=== PATIENT | female | born 1960 | race Caucasian/White ===

== ENCOUNTER → 2016-06-11 | Outpatient (CLI) | payer BC ==
[~2016-06-11] MED LIST: AMOX400T12; CEFP500T4 PO; CYCL10TA9 PO; CYCL1DRO; ESCI10TA PO; ESTR0.5T3 PO; GABA-486 PO; IBUP1TAB90 PO; NAPR220C11 PO; OXYC-197 PO; POTA99TA21 PO; PRD20T PO; PRED10TA PO; SULF1TAB35 PO; TRAM-42 PO
--- NOTE | 2016-06-12 10:24 | Diagnostic Imaging Report ---
Bilateral screening mammogram The current study was also evaluated with a Computer Aided Detection (CAD) system. Indication: Screening. No current complaints stated on the questionnaire. COMPARISON: 03/18/15 FINDINGS: Breasts are composed of heterogeneously dense parenchyma which may decrease mammographic sensitivity. Overall, the breast density is less than prior exams bilaterally. There is no mass, architectural distortion or suspicious cluster of calcification. Allowing for technique and positional differences, no suspicious change is seen. IMPRESSION: No significant change. ACR BI-RADS Category 2: Benign findings. Result letter will be mailed to the patient. Note: At least 10% of breast cancer is not imaged by mammography. Dictated by: Dictated on workstation # [id number]
== END ==
LOC: RAD 11:02
PROVIDERS: ATTEND Nurse Practitioner
DX: Z12.31 Encounter for screening mammogram for malignant neoplasm of breast (principal)
CPT/HCPCS: 77067

== ENCOUNTER 2016-07-04 05:10 | Emergency (ER) | payer BC ==
[~2016-07-04] VITALS: Ht 172.7 cm; Wt 102.1 kg
[~2016-07-04 05:10] MED LIST changes: -CYCL10TA9 PO; -OXYC-197 PO; -PRD20T PO
--- NOTE | 2016-07-04 05:25 | ED Back Pain ---
General Chief Complaint: Back Problems Stated Complaint: BACK PAIN Source of Information: Patient, EMS, RN Notes Reviewed Exam Limitations: No Limitations (TAMELA COOPER DO) History of Present Illness Time Seen by Provider: 05:25 Initial Comments Patient c/ acute onset of right sided LBP on Saturday. Has become progressively worse. Radiates into her right buttock and around the side of her thigh to the front of her lower right thigh. Pain worse sitting. Occurred while leaning over side of her car to lift a present out of her trunk. Has had similar problem in past but was on her other side. Was dx c/ a bulging disk per MRI c/ that occurrence. Seen by back specialist in [place] for that episode. Can't take the pain any longer. Hasn't been able to sleep tonight. Location: Lumbar Spine Timing/Duration: 2-3 Days Severity: Severe Pain/Injury Location: Back Radiation: Upper Legs (right) Method of Injury: Other (see above) Modifying Factors: Worse With Movement, Improves With Other (sitting) Associated Symptoms: lower back pain (TAMELA COOPER DO) Allergies and Home Medications Allergies Coded Allergies: codeine (Unverified Allergy, Mild, 06/23/08) nitrofurantoin (Unverified Allergy, Mild, 06/23/08) lidocaine (Verified Allergy, Unknown, ANAPHYLAXIS, 02/03/15) Home Medications Estradiol 0.5 Mg Tablet, 0.5 MG PO DAILY, (Reported) Constitutional: see HPI : No Musculoskeletal: see HPI, back pain (TAMELA COOPER DO) All Other Systems Reviewed Negative Unless Noted: Yes (Negative excepted noted.) (TAMELA COOPER DO) Past Vfbouxj-Bmdmzf-Jdnlov Hx Patient Social History Recent Foreign Travel: No Contact w/Someone Who Travel: No (TAMELA COOPER DO) Seasonal Allergies Seasonal Allergies: No (TAMELA COOPER DO) Surgeries HX Surgeries: Yes (OVARIAN CYST, L knee SCOPE, SEBACEOUS CYST) Surgeries: Adenoidectomy, Hysterectomy, Tonsillectomy (TAMELA COOPER DO) Respiratory Hx Respiratory Disorders: No (TAMELA COOPER DO) Cardiovascular Hx Cardiac Disorders: Yes (SL MURMUR) (TAMELA COOPER DO) Neurological Hx Neurological Disorders: No (TAMELA COOPER DO) Reproductive System Hx 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 (TAMELA COOPER DO) Genitourinary Hx Genitourinary Disorders: No (TAMELA COOPER DO) Gastrointestinal Hx Gastrointestinal Disorders: No (TAMELA COOPER DO) Musculoskeletal Hx Musculoskeletal Disorders: No Musculoskeletal Disorders: Chronic Back Pain (TAMELA COOPER DO) Endocrine Hx Endocrine Disorders: No (TAMELA COOPER DO) HEENT HX ENT Disorders: No (TAMELA COOPER DO) Cancer Hx Cancer: No (TAMELA COOPER DO) Psychosocial Hx Psychiatric Problems: No (TAMELA COOPER DO) Integumentary HX Skin/Integumentary Disorder: No (TAMELA COOPER DO) Blood Transfusions Hx Blood Disorders: No (TAMELA COOPER DO) Physical Exam Vital Signs Vital Sign - Last 12Hours 07/04/16 05:10 Temp 98.6 Pulse 91 Resp 22 B/P (MAP) 158/94 Pulse Ox 97 O2 Delivery Room Air (RICKIE COUGHLIN MD) Vital Signs Capillary Refill : (TAMELA COOPER DO) General Appearance: WD/WN, Mild Distress, Obese Cardiovascular: Regular Rate, Rhythm Respiratory: No Respiratory Distress Gastrointestinal: Non Tender, Soft Back: Decreased Range of Motion, Other (right sided lower lumbar spine paraspinal tenderness) Neurologic/Psychiatric: Alert, Oriented x3, No Motor/Sensory Deficits Skin: Warm/Dry (TAMELA COOPER DO) Progress/Results/Core Measures Results/Orders My Orders Orders - RICKIE COUGHLIN MD Ketorolac Injection (Toradol Injection) (07/04/16 06:30) Mri Lumbar Spine W/O Contrast (07/04/16 06:28) Oxycodone/Apap 5/325mg Tablet (Percocet (07/04/16 08:15) Orphenadrine Injection (Norflex Injectio (07/04/16 08:15) (RICKIE COUGHLIN MD) Medications Given in ED Current Medications Medications Dose Ordered Sig/Paula Route Start Time Stop Time Status Last Admin Dose Admin Fentanyl Citrate 100 mcg ONCE ONCE IM 07/04/16 05:45 07/04/16 05:46 DC 07/04/16 05:46 100 MCG Ketorolac Tromethamine 60 mg ONCE ONCE IM 07/04/16 06:30 07/04/16 06:31 DC 07/04/16 06:30 60 MG Orphenadrine Citrate 60 mg ONCE ONCE IM 07/04/16 08:15 07/04/16 08:16 DC 07/04/16 08:17 60 MG Oxycodone/ Acetaminophen 1 tab ONCE ONCE PO 07/04/16 08:15 07/04/16 08:16 DC 07/04/16 08:17 1 TAB (RICKIE COUGHLIN MD) Vital Signs/I&O Vital Sign - Last 12Hours 07/04/16 05:10 Temp 98.6 Pulse 91 Resp 22 B/P (MAP) 158/94 Pulse Ox 97 O2 Delivery Room Air (RICKIE COUGHLIN MD) Progress Note #1: Time: 06:30 Progress Note I assumed care of this patient from Dr. Cooper. Dr. Cooper discussed the potential for waiting in the emergency room to determine if MRI can be performed later this morning. Patient would like to do so. Patient would like to stay and wait for MRI. She is feeling somewhat better after a fentanyl injection. A Toradol injection will be given to provide her longer relief since she is staying to be worked into the MRI scheduled. Progress Note #2: Progress Note MRI viewed and reviewed with radiologist. She has multiple areas of concern including disc bulging encroaching on the nerve root, spinal stenosis, and neuroforaminal narrowing. Patient was additionally treated with Percocet and Norflex injection. She was dismissed with a desk of her images to take to her plant controls specialist. (RICKIE COUGHLIN MD) Diagnostic Imaging Diagonstic Imaging: MRI Plain Films/CT/US/NM/MRI: other (lumbar spine) Comments MRI viewed by me and report reviewed. Discussed with the radiologist. Report below: NAME: MARLON BEAUCHAMP [facility] REC#: [id number] PT STATUS: REG ER : 1960 PHYSICIAN: RICKIE COUGHLIN MD ADMIT DATE: 07/04/16/ER Draft Date of Exam:07/04/16 MRI LUMBAR SPINE W/O CONTRAST PROCEDURE: MRI lumbar spine. TECHNIQUE: Multiplanar, multisequence MRI of the lumbar spine was performed without contrast. INDICATION: Back pain There are no previous studies available for comparison. The T2 parasagittal images show straightening of the lumbar spine. This may be secondary to muscle spasm and/or positioning. The vertebral body heights are within normal limits. There is mild generalized narrowing of the disc spaces at every level and there is desiccation of the disc as well. The thecal sac is relatively slender. This is most likely developmental variant. At the L3-4 level there is a disc bulge eccentric to the left. There is also bony overgrowth of the facet joint on the left at this level and these degenerative changes do result in at least moderate narrowing of the neural foramen on the left at the L3-4 level. There does not appear to be any significant narrowing of the neural foramen on the right at this level. The disc also narrows the AP diameter of the slender thecal sac to 8.6 MM. At the L2-3 level there is a focal far lateral disc protrusion to the right. There is no evidence for central stenosis at this level but the disc does appear to encroach upon the exiting right nerve root (sagittal T2, series 2 image 14).There is no neuroforaminal narrowing on the left at L2-3. At the L4-5 level there is also narrowing of the neural foramen on the left due to a combination of degenerative disc and bony disease. There is also mild central stenosis narrowing the thecal sac to 8.8 MM. There is no evidence for spinal stenosis or nerve root encroachment at L1-2 or L5-S1. There is mottled signal throughout the vertebral bodies on the T1 series. This appearance is nonspecific but unlikely to be related to a marrow replacement process. There is no abnormal signal arising from the cord itself. There is no paraspinal mass visualized. IMPRESSION: 1. There is a far lateral focal disc protrusion to the right at L2-3. The disc material does encroach upon the exiting right nerve root at this level. 2. There is mild central stenosis at L3-4 and L4-5 and there is narrowing of the neural foramen on the left at both of these levels. 2. The remainder of the lumbar spine is unremarkable for spinal stenosis or nerve root encroachment. 3. There is no sign of an acute bony abnormality. The mottled signal within the vertebral bodies is of uncertain etiology but unlikely to be related to a marrow replacement process. Dictated on workstation # [id number] Dict: 07/04/16 0800 Trans: 07/04/16 0824 [facility] [id number] Interpreted by: NIKOS RICHARDSON MD (RICKIE COUGHLIN MD) Departure Impression Impression: Primary Impression: Bulging lumbar disc Additional Impressions: Lumbar radiculopathy Lower back pain Qualified Codes: M54.41 - Lumbago with sciatica, right side Lumbar spinal stenosis Disposition: 01 HOME, SELF-CARE Condition: Improved Departure-Patient Inst. Decision time for Depature: 08:20 (RICKIE COUGHLIN MD) Referrals: MARLON SANTIAGO MD (PCP/Family) Primary Care Physician Patient Instructions: Low Back Pain in Adults, Radiculopathy (DC) Add. Discharge Instructions: Use ibuprofen up to 600 mg every 6 hours as needed for primary pain control. Add Percocet as prescribed for pain not controlled by ibuprofen. Take ibuprofen and prednisone with food or milk to avoid stomach upset. You may wish to use a stool softener such as Colace while using narcotic pain medications to avoid constipation. Do not drive, make important decisions, or operate machinery or dangerous tools while taking narcotics or muscle relaxers. Follow-up with your plant controls specialist as soon as possible. Return to emergency room if you have other problems or concerns, especially if you have progressive weakness of the lower extremities or problems controlling your bowels or bladder. All discharge instructions reviewed with patient and/or family. Voiced understanding. Scripts Cyclobenzaprine HCl (Cyclobenzaprine HCl) 10 Mg Tablet 10 MG PO TID Y for SPASMS, #10 TAB Prov: RICKIE COUGHLIN MD 07/04/16 Oxycodone HCl/Acetaminophen (Percocet 5-325 mg Tablet) 1 Each Tablet 1-2 EACH PO Q6H Y for PAIN-BREAKTHROUGH, #20 TAB Prov: RICKIE COUGHLIN MD 07/04/16 Prednisone (Prednisone) 20 Mg Tab 20 MG PO BID, #10 TAB Prov: RICKIE COUGHLIN MD 07/04/16 TAMELA COOPER DO July 04, 2016 05:25 RICKIE COUGHLIN MD July 04, 2016 06:32
[2016-07-04] MEDS ORDERED: fentaNYL INJECTION 100 MCG/2 ML AMP IM ONE (05:45)
[2016-07-04] MEDS ORDERED: KETOROLAC 60 MG/2 ML VIAL IM ONE (06:30)
[2016-07-04] MEDS ORDERED: oxyCODONE/APAP 5/325MG (PERCOCET 5) TABLET PO ONE (08:15)
[2016-07-04] MEDS ORDERED: ORPHENADRINE 60 MG/2 ML (NORFLEX) AMP IM ONE (08:15)
--- NOTE | 2016-07-04 08:25 | Diagnostic Imaging Report ---
PROCEDURE: MRI lumbar spine. TECHNIQUE: Multiplanar, multisequence MRI of the lumbar spine was performed without contrast. INDICATION: Back pain There are no previous studies available for comparison. The T2 parasagittal images show straightening of the lumbar spine. This may be secondary to muscle spasm and/or positioning. The vertebral body heights are within normal limits. There is mild generalized narrowing of the disc spaces at every level and there is desiccation of the disc as well. The thecal sac is relatively slender. This is most likely developmental variant. At the L3-4 level there is a disc bulge eccentric to the left. There is also bony overgrowth of the facet joint on the left at this level and these degenerative changes do result in at least moderate narrowing of the neural foramen on the left at the L3-4 level. There does not appear to be any significant narrowing of the neural foramen on the right at this level. The disc also narrows the AP diameter of the slender thecal sac to 8.6 MM. At the L2-3 level there is a focal far lateral disc protrusion to the right. There is no evidence for central stenosis at this level but the disc does appear to encroach upon the exiting right nerve root (sagittal T2, series 2 image 14).There is no neuroforaminal narrowing on the left at L2-3. At the L4-5 level there is also narrowing of the neural foramen on the left due to a combination of degenerative disc and bony disease. There is also mild central stenosis narrowing the thecal sac to 8.8 MM. There is no evidence for spinal stenosis or nerve root encroachment at L1-2 or L5-S1. There is mottled signal throughout the vertebral bodies on the T1 series. This appearance is nonspecific but unlikely to be related to a marrow replacement process. There is no acute bony abnormality identified. There is no abnormal signal arising from the cord itself. There is no paraspinal mass visualized. IMPRESSION: 1. There is a far lateral focal disc protrusion to the right at L2-3. The disc material does encroach upon the exiting right nerve root at this level. 2. There is mild central stenosis at L3-4 and L4-5 and there is narrowing of the neural foramen on the left at both of these levels. 2. The remainder of the lumbar spine is unremarkable for spinal stenosis or nerve root encroachment. 3. There is no sign of an acute bony abnormality. The mottled signal within the vertebral bodies is of uncertain etiology but unlikely to be related to a marrow replacement process. 4. These results were discussed with Dr. Mayfield in the ER. Dictated by: Dictated on workstation # [id number]
[2016-07-04] MEDS ORDERED: OXYC-197 PO (08:29)
[2016-07-04] MEDS ORDERED: PRD20T PO (08:29)
[2016-07-04] MEDS ORDERED: CYCL10TA9 PO (08:29)
[2016-07-04 08:47] VITALS: BP 155/86
== END 2016-07-04 08:48 | disposition home or self-care (01) ==
LOC: EDUNIT# 05:15 → ER 05:16
DX: M51.16 Intervertebral disc disorders with radiculopathy, lumbar region (principal); M48.06 Spinal stenosis, lumbar region
CPT/HCPCS: 72148; 96372; 99283

== ENCOUNTER → 2017-08-01 | Outpatient (CLI) | payer BC ==
[~2017-08-01] MED LIST changes: +CYCL10TA9 PO; +OXYC-197 PO; +PRD20T PO
--- NOTE | 2017-08-01 12:07 | Diagnostic Imaging Report ---
INDICATION: Routine screening. Comparison is made with prior study from 06/11/16 and 03/16/2015. 2-D and 3-D bilateral screening mammography was performed with CAD. The current study was also evaluated with a Computer Aided Detection (CAD) system. Both breasts are heterogeneously dense, limiting the sensitivity of mammography. No mass or malignant appearing microcalcifications are seen. Axillae are unremarkable. IMPRESSION: BI-RADS category one No mammographic features suspicious for malignancy are identified. ACR BI-RADS Category 1: Negative. Result letter will be mailed to the patient. Note: At least 10% of breast cancer is not imaged by mammography. Dictated by: Dictated on workstation # [id number]
== END ==
LOC: RAD 07:14
PROVIDERS: ATTEND Nurse Practitioner
DX: Z12.31 Encounter for screening mammogram for malignant neoplasm of breast (principal)
CPT/HCPCS: 77067

== ENCOUNTER → 2018-01-25 | Outpatient (CLI) | payer BC ==
[~2018-01-25] MED LIST changes: -OXYC-197 PO; +OXYC1TAB87 PO
== END ==
LOC: LABNPT 17:41
PROVIDERS: ATTEND Nurse Practitioner Family
DX: L72.3 Sebaceous cyst (principal); L08.9 Local infection of the skin and subcutaneous tissue, unspecified
CPT/HCPCS: 87070; 87077; 87205

== ENCOUNTER → 2018-03-06 | Outpatient (CLI) | payer BC ==
--- NOTE | 2018-03-06 18:55 | Diagnostic Imaging Report ---
EXAMINATION: Unilateral diagnostic left mammogram with 3D tomosynthesis and computer-aided detection (CAD) system. INDICATION: Left breast lump. COMPARISON: This study was compared to the prior exams of 08/01/2017, 06/11/2016, and 03/16/2015. At this time, the patient does complain of a small palpable abnormality in the medial inferior aspect of the left breast. Reportedly, the patient has been on antibiotics for the last six weeks. It is my understanding that there is also a recent attempt to aspirate the area of concern. FINDINGS: A marker was placed over the palpable abnormality. There is no discrete mass evident in this area. Even so, ultrasound would be recommended for further study. The fibroglandular tissue in the left breast is heterogeneously dense. This does limit the sensitivity of this exam. Overall, there does not appear to have been any significant change. There is no primary or secondary sign of malignancy. IMPRESSION: The patient's palpable abnormality in the inferomedial aspect of the left breast cannot be identified. Ultrasound would be recommended for further study. ACR BI-RADS Category 0: Incomplete. (Needs additional imaging evaluation). Result letter will be mailed to the patient. Note: At least 10% of breast cancer is not imaged by mammography. Dictated by: Dictated on workstation # [id number]
--- NOTE | 2018-03-06 19:15 | Diagnostic Imaging Report ---
EXAMINATION: Ultrasound of the left breast, limited. INDICATION: Left breast lump and pain. FINDINGS: By history, the patient has a palpable mass in the 9 o'clock position of the left breast approximately 10 cm from the nipple. The diagnostic mammogram performed in conjunction with this study failed to show any sign of a mass or an acute abnormality. On this study, there is no definite mass identified. There is a small area of slightly altered echogenicity within the skin in this region. This may represent a minute sebaceous cyst. No other abnormality is identified. IMPRESSION: There may be a small sebaceous cyst in the area of the patient's palpable abnormality. No other abnormality is identified. Clinical follow-up is recommended. ACR BI-RADS Category 1: Negative. Result letter will be mailed to the patient. Note: At least 10% of breast cancer is not imaged by mammography. Dictated by: Dictated on workstation # [id number]
== END ==
LOC: RAD 13:50
PROVIDERS: ATTEND Nurse Practitioner Family
DX: N60.82 Other benign mammary dysplasias of left breast (principal); N63.20 Unspecified lump in the left breast, unspecified quadrant
CPT/HCPCS: 76642

== ENCOUNTER → 2018-09-30 | Outpatient (CLI) | payer BC ==
--- NOTE | 2018-09-30 13:07 | Diagnostic Imaging Report ---
INDICATION: Routine screening. Comparison is made with prior mammograms from 08/01/2017 and 06/11/2016. 2-D and 3-D bilateral screening mammography was performed. The current study was also evaluated with a Computer Aided Detection (CAD) system. 3-D tomosynthesis was also performed and reviewed. FINDINGS: Scattered fibroglandular densities are identified bilaterally. The parenchymal pattern is stable. No dominant mass or malignant-appearing microcalcifications are seen. Axillae are unremarkable. IMPRESSION: No mammographic features suspicious for malignancy are identified. ACR BI-RADS Category 1: Negative. Result letter will be mailed to the patient. Note: At least 10% of breast cancer is not imaged by mammography. Dictated by: Dictated on workstation # [id number]
== END ==
LOC: RAD 07:28
PROVIDERS: ATTEND Nurse Practitioner
DX: Z12.31 Encounter for screening mammogram for malignant neoplasm of breast (principal)
CPT/HCPCS: 77067

== ENCOUNTER 2019-02-24 08:47 | Outpatient (CLI) | payer BC ==
[~2019-02-24] VITALS: Ht 172 cm; Wt 102.6 kg
[2019-02-24] MEDS ORDERED: FLAX100031 PO (09:07)
[2019-02-24] MEDS ORDERED: CHOL100048 PO (09:07)
[2019-02-24] MEDS ORDERED: ESTR0.5T3 PO (09:07)
[2019-02-24] MEDS ORDERED: CARV3.122 PO (09:07)
[2019-02-24] MEDS ORDERED: MULT1CAP27 PO (09:07)
[2019-02-24 09:09] VITALS: BP 125/75
[2019-02-24 09:59] LABS: BASOPHILS % (AUTO) 0 % (0-10); EOSINOPHILS # (AUTO) 0.1 10^3/uL (0.0-0.3); EOSINOPHILS % (AUTO) 2 % (0-10); HEMATOCRIT 40 % (35-52); HEMOGLOBIN 13.9 G/DL (11.5-16.0); LYMPHOCYTES # (AUTO) 2.1 X 10^3 (1.0-4.0); LYMPHOCYTES % (AUTO) 30 % (12-44); MEAN CORPUSCULAR HEMOGLOBIN 30 PG (25-34); MEAN CORPUSCULAR HGB CONC 35 G/DL (32-36); MEAN CORPUSCULAR VOLUME 88 FL (80-99); MEAN PLATELET VOLUME 9.3 FL (7.4-10.4); MONOCYTES # (AUTO) 0.6 X 10^3 (0.0-1.0); MONOCYTES % (AUTO) 8 % (0-12); NEUTROPHILS % (AUTO) 60 % (42-75); PLATELET COUNT 239 10^3/uL (130-400); WHITE BLOOD COUNT 6.8 10^3/uL (4.3-11.0)
== END 2019-02-24 12:00 | disposition home or self-care (01) ==
LOC: PREOP 08:47
PROVIDERS: ATTEND Obstetrics & Gynecology
DX: Z01.812 Encounter for preprocedural laboratory examination (principal); N81.10 Cystocele, unspecified; N81.6 Rectocele
CPT/HCPCS: 36415; 85025; 86850; 86900; 86901; 87081

== ENCOUNTER 2019-03-02 08:52 | Day surgery (SDC) | payer BC ==
[~2019-03-02] VITALS: Ht 172 cm; Wt 102.6 kg
[2019-03-02] VITALS (14 sets, daily range): BP systolic 127–152; BP diastolic 65–83
[~2019-03-02 08:52] MED LIST changes: +CARV3.122 PO; +CHOL100048 PO; +FLAX100031 PO; +MULT1CAP27 PO
--- NOTE | 2019-03-02 09:18 | History & Physical-Surgical ---
HPO-Surgical History of Present Illness Chief Complaint: Vaginal prolapse Diagnosis/Surgical Indication: CYSTOCELE, RECTOCELE Procedure: ANTERIOR/POSTERIOR Date of Surgery: Mar 02, 2019 Weight (Pounds): 225 Weight (Ounces): 0.0 Height (Feet): 5 Height (Inches): 8.00 Allergies and Home Medications Allergies Coded Allergies: lidocaine (Verified Allergy, Severe, ANAPHYLAXIS, 02/24/19) nitrofurantoin (Unverified Allergy, Severe, TACHYCARDIA, 02/24/19) codeine (Unverified Allergy, Mild, N/V, 02/24/19) Home Medications Carvedilol 3.125 Mg Tablet, 3.125 MG PO BID, (Reported) Cholecalciferol (Vitamin D3) 1,000 Unit Capsule, 1,000 UNIT PO DAILY, (Reported) Estradiol 0.5 Mg Tablet, 0.5 MG PO DAILY, (Reported) Flaxseed Oil 1,000 Mg Capsule, 1,000 MG PO DAILY, (Reported) Multivitamin 1 Each Capsule, 1 EACH PO DAILY, (Reported) Patient Home Medication List Home Medication List Reviewed: Yes Past Lxpipct-Wggiup-Vqdkcw Hx Patient Social History 2nd Hand Smoke Exposure: No Recent Hopitalizations: No Seasonal Allergies Seasonal Allergies: Yes Surgeries Yes (OVARIAN CYST, L knee SCOPE, SEBACEOUS CYST, DISCECTOMY) Adenoidectomy, Hysterectomy, Tonsillectomy Respiratory No Cardiovascular Yes (SL MURMUR) Hypertension, Palpitations Neurological No Reproductive System Hx Reproductive Disorders: No Sexually Transmitted Disease: No HIV/AIDS: No 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 Genitourinary No Gastrointestinal No Musculoskeletal Yes (HERNIATED DISC) Chronic Back Pain Endocrine History of Endocrine Disorders: No (THYROID NODULES) HEENT History of HEENT Disorders: Yes (GLASSES) Loss of Vision: Denies Hearing Impairment: Denies Cancer No Psychosocial History of Psychiatric Problem: No Integumentary History of Skin or Integumenta: No Blood Transfusions History of Blood Disorders: No Adverse Reaction to a Blood Tr: No (N/A) Exam Vital Signs Capillary Refill : General Appearance: Alert, Oriented X3 HEENT: Atraumatic Respiratory: Clear to Auscultation Cardiovascular: Regular Rate Abdominal: Normal Bowel Sounds Extremities: Normal Pulses Skin: No Breakdown Neuro: Normal Gait Psych/Mental Status: Mental Status NL Assessment/Plan Admission Diagnosis Diagnosis: 58 yo female with vaginal prolapse, cystocele and rectocele P: Anterior and posterior colporraphy Risk have been reviewed and consent obtained all questions answered. Admission Status: Observation Reason for Inpatient Admission: s/p A/P repair RIVKA CARBAJAL DO Mar 02, 2019 09:18
[2019-03-02] MEDS ORDERED: D5 LR IV SOLUTION 1,000 ML IV SCH (09:28)
[2019-03-02] MEDS ORDERED: METOCLOPRAMIDE INJ 10 MG/2 ML (REGLAN) IV PRN (09:30)
[2019-03-02] MEDS ORDERED: HYDROmorphone 2 MG/ML VIAL (DILAUDID) IV PRN (09:30)
[2019-03-02] MEDS ORDERED: HYDROcodone/APAP 5 MG/325 MG (LORTAB) TAB PO PRN (09:30)
[2019-03-02] MEDS ORDERED: ONDANSETRON 4 MG/2 ML (SDV) Z0FRAN IVP PRN ×2 (09:30→12:15)
[2019-03-02] MEDS ORDERED: BENZOCAINE/MENTHOL (DERMOPLAST) 56 ML CAN TP PRN (09:30)
[2019-03-02] MEDS ORDERED: NS (IVPB) 100 ML ONE (09:38)
[2019-03-02] MEDS ORDERED: VASOPRESSIN INJECTION 20 UNIT/ML VIAL ONE (09:38)
[2019-03-02] MEDS ORDERED: ESTROGENS CONJ. CREAM 30 GM (PREMARIN) TUBE ONE (09:38)
[2019-03-02] MEDS ORDERED: proPOfol 200 MG/20 ML (DIPRIVAN) VIAL IV ONE (10:02)
[2019-03-02] MEDS ORDERED: LIDOCAINE PF 2% 5 ML (XYLOCAINE) VIAL ONE (10:02)
[2019-03-02] MEDS ORDERED: ROCURONIUM 10 MG/ML 5 ML SYRINGE IV ONE (10:02)
[2019-03-02] MEDS ORDERED: ONDANSETRON 4 MG/2 ML (SDV) Z0FRAN ONE (10:02)
[2019-03-02] MEDS ORDERED: MIDAZOLAM 2 MG/2 ML (VERSED) VIAL ONE (10:03)
[2019-03-02] MEDS ORDERED: fentaNYL INJECTION 100 MCG/2 ML AMP ONE (10:03)
[2019-03-02] MEDS: LACTATED RINGERS 1,000 ML IV PRN ×3 (10:07→12:32)
[2019-03-02] MEDS ORDERED: SEVOFLURANE (ULTANE) 15 ML INHAL SOLN ONE ×6 (10:11→12:01)
[2019-03-02] MEDS ORDERED: DOCU100C37 PO (10:20)
[2019-03-02] MEDS ORDERED: IBUP-844 PO (10:20)
[2019-03-02] MEDS ORDERED: ACHD5005 PO (10:20)
--- NOTE | 2019-03-02 10:21 | Discharge Inst-Women's Service ---
Discharge Inst-Women's Serv Depart Medication/Instructions New, Converted or Re-Newed RX: RX on Chart Final Diagnosis POD 1 A/P repair Problems Reviewed?: Yes Consults/Follow Up Additional Follow Up: Yes Orders/Referrals Dr. Carbajal in 6 weeks Activity Activity: Activity as Tolerated Driving Instructions: No Driving for 1 Week NO SMOKING: NO SMOKING Nothing Inside Vagina: No Douching, No [place], No Tampons Diet Discharge Diet: No Restrictions Symptoms to Report to : Bleeding Excessive, Pain Increased, Fever Over 101 Degrees F, Cramps in Feet or Legs, Questions/Concerns For Any Problems or Questions: Contact Your Physician RIVKA CARBAJAL DO Mar 02, 2019 10:21
[2019-03-02] MEDS: KETOROLAC 30 MG/ML VIAL IV SCH ×2 (11:45→18:12)
[2019-03-02] MEDS ORDERED: DEXAMETHASONE 10 MG/ML (DECADRON) 1 ML VIAL ONE (11:52)
[2019-03-02] MEDS ORDERED: NEOSTIGMINE 3 MG/3 ML VIAL ONE (11:53)
[2019-03-02] MEDS ORDERED: GLYCOPYRROLATE 0.2 MG/ML (ROBINUL) 2 ML VIAL ONE (11:53)
[2019-03-02] MEDS ORDERED: IBUPROFEN 600 MG (MOTRIN) TAB PO SCH (12:00)
[2019-03-02] MEDS ORDERED: morphine INJ 10 MG/ML 1ML (SYR OR VIAL) IVP ONE (12:15)
[2019-03-02] MEDS ORDERED: MEPERIDINE (DEMEROL) INJ 50 MG/ML IVP ONE (12:15)
[2019-03-02] MEDS ORDERED: HYDROmorphone 2 MG/ML VIAL (DILAUDID) IV ONE (12:15)
[2019-03-02] MEDS ORDERED: HYDROmorphone 2 MG/ML VIAL (DILAUDID) ONE (12:25)
--- NOTE | 2019-03-02 13:10 | NUR ---
MARLON BEAUCHAMP TRANSFERRED TO ROOM 305 VIA PT BED ACC BY NASIM IQBAL HISTOLOGIST TECHNOLOGIST AFTER AN ANTERIOR COLPORRHAPHY AND POSTERIOR COLPORRHAPHY TODAY BY DR. CARBAJAL.MARLON BEAUCHAMP introduced to surroundings, call light, bed controls, phone, TV, temperature control, lights, meal times, smoking policy, visitor policy, side rail policy, bathrooms and showers. Patient Rights given to patient in the handbook.
--- NOTE | 2019-03-02 13:20 | NUR ---
IV PLACED ON PUMP WITH NEW TUBING. SITE CLEAR. VAGINAL PACKING IN PLACE. NO BLEEDING NOTED ON TAIL OF PACK OR V-PAD. LACEY PATENT TO DD WITH SMALL AMOUNT OF URINE. RATES PAIN 2/10.
--- NOTE | 2019-03-02 14:00 | NUR ---
ANESTHESIA NOTIFIED OF PT'S LOW PULSE TO UPPER 40'S AND LOW 50"S. DR. CARBAJAL NOTIFIED AT THE SAME TIME. NO NEW ORDERS. CONTINUOUS SPO2 MONITORING AND FREQUENT VS. FAMILY AT BEDSIDE.
--- NOTE | 2019-03-02 14:30 | NUR ---
EATING A SANDWICH TRAY. S.O. AT BEDSIDE.
--- NOTE | 2019-03-02 14:31 | Anesthesia-General Post-Op ---
General Patient Condition Mental Status/LOC: Same as Preop Cardiovascular: Satisfactory Nausea/Vomiting: Absent Respiratory: Satisfactory Pain: Controlled Complications: Absent Post Op Complications Complications None Follow Up Care/Instructions Patient Instructions None needed. Anesthesia/Patient Condition Patient Condition Patient is doing well, no complaints, stable vital signs, no apparent adverse anesthesia problems. No complications reported per nursing. NIRMAL CROWDER CRNA Mar 02, 2019 14:31
--- NOTE | 2019-03-02 16:30 | NUR ---
WATCHING TV. 500CC BOLUS INITIATED OF LR R/T BORDERLINE URINE OUTPUT. RATES PAIN 1-2/10.
--- NOTE | 2019-03-02 18:15 | NUR ---
EATING DINNER. URINE OUTPUT PICKING UP.
--- NOTE | 2019-03-02 18:33 | OPERATIVE REPORT ---
DATE OF SERVICE: PREOPERATIVE DIAGNOSIS: A 58-year-old female with vaginal prolapse including cystocele and rectocele. POSTOPERATIVE DIAGNOSIS: A 58-year-old female with vaginal prolapse including cystocele and rectocele. PROCEDURE: Anterior colporrhaphy and posterior colporrhaphy. SURGEON: Rivka Carbajal DO ANESTHESIA: General endotracheal. ESTIMATED BLOOD LOSS: 50 mL. URINE OUTPUT: 200 mL clear at the end of procedure. FLUIDS: 1700 mL lactated Ringer solution. FINDINGS: Cystocele and rectocele as listed above. SPECIMEN SENT: None. INDICATIONS FOR PROCEDURE: This 58-year-old female is a patient who presented to my office with concerns of vaginal prolapse. She was given conservative options for management; however, wished to proceed with surgical management options after risk, benefits, alternatives of both options were discussed. Consent was obtained in the preoperative area after all of her questions were answered and the patient was taken to the operating room. OPERATIVE REPORT IN DETAIL: Once in the operating room, anesthesia was found to be adequate, placed in dorsal lithotomy position, prepped and draped in normal sterile fashion. A timeout was performed. A Jo catheter placed using sterile technique. A weighted speculum was inserted in the patient's vagina. I then isolated and identify all of the margins of the cystocele. I began the procedure by infiltrating the submucosa of the cystocele margins using vasopressin, a concentration of 20 units in 100 mL normal saline. Once all the margins are injected and blanching appears of the mucosa, I then make a transverse incision at the distal margin of the cystocele. I then undermined this incision using Metzenbaum scissors down the midline and then incised down the midline. I then grasped the lateral aspect of the incision, tented upward and dissected off of the underlying vesicovaginal fascia to the lateral margins of the cystocele. This was done bilaterally until the entire cystocele has been identified and vesicovaginal fascia has been dissected away. Once this was done, I then plicated the lateral margins of the vesicovaginal fascia using 0 Vicryl suture in an interrupted fashion, reducing the cystocele as I go. Once this was completely done, I then trimmed the excess vaginal mucosa and reapproximated the mucosa of the vagina using 3-0 Vicryl suture in a running locked fashion, after which there was no active bleeding noted from the cystocele repair and the repair reveals a significant amount of reduction in the previously mentioned cystocele. I then take the weighted speculum in the patient's vagina and then began by infiltrating the margins of the submucosa of the rectocele using the same vasopressin injection until the mucosa blanches similarly to the anterior repair. I then incised the shape of a triangle upside down on the perineum and vagina and excised the cutaneous tissue. I then used this incision to undermine down the midline using Metzenbaum scissors the rectocele. I then incised down the midline as well. I dissected the rectovaginal fascia and mucosa off of the rectocele bluntly until I reached the lateral margins of the rectocele, at which point I trimmed the excess mucosa and reapproximated the mucosa and the rectovaginal fascia in one layer using 3-0 Vicryl suture in a running locked fashion. Once I reached the mucocutaneous junction, I take the suture out through the subcutaneous tissue of the perineum and reapproximate the perineal body using 0 Vicryl suture in a crown stitch reapproximating and pulling together the bulbocavernosus muscles. This was done for both support and reapproximation of the rectocele. Once this was done, I reapproximated the subcutaneous tissue and then subcuticular tissue of the perineum back up to the mucocutaneous junction where I placed my knot of the suture. After which, there was no active bleeding noted from the rectocele plane as well. I then packed the vagina using Premarin soaked vaginal packing and leave the Jo catheter in place. The patient tolerated the procedure well and sent to recovery area in stable condition. Lap and sponge counts were correct at the end of the procedure. Instrument counts correct as well. Job ID: [id number] DocumentID: [id number] Dictated Date: 03/02/2019 14:02:00 Associate Programmer Analyst Date: 03/02/2019 18:32:41 Dictated By: RIVKA CARBAJAL DO
--- NOTE | 2019-03-02 18:55 | NUR ---
DR. CARBAJAL UPDATED ON URINE OUTPUT AND BOLUS GIVEN.
[2019-03-03 00:25] VITALS: BP 142/73
[2019-03-03] MEDS: KETOROLAC 30 MG/ML VIAL IV SCH ×2 (00:26→06:35)
[2019-03-03 04:25] VITALS: BP 147/77
--- NOTE | 2019-03-03 06:49 | NUR ---
Pt ambulating in halls, asymptomatic, no ss distress, tolerating well. will cont to monitor.
--- NOTE | 2019-03-03 07:45 | NUR ---
Pt up ambulating in hallways, no s/s of distress noted.
--- NOTE | 2019-03-03 08:11 | NUR ---
Dr Clancy here to see pt.
[2019-03-03 08:26] VITALS: BP 146/82
[2019-03-03] MEDS ORDERED: DOCUSATE SODIUM 100 MG (COLACE) CAP PO SCH (09:00)
--- NOTE | 2019-03-03 11:10 | NUR ---
Pt voided, 300 ml clear yellow urine noted in hat. Pt requesting to shower. Towels and washcloths supplied.
[2019-03-03] MEDS ORDERED: IBUPROFEN 600 MG (MOTRIN) TAB PO ONE (13:31)
--- NOTE | 2019-03-03 13:45 | NUR ---
Pt requesting RN check her BP. BP taken, 154/71. Pt reports being concerned as this is very high for her, especially as she has taken her cardevilol. Pt denies headache, blurry vision, etc. Dr. Clancy called and notified per pt request. believes this is due to fluid shifts with surgery, and plans to continue with discharge as pt has a history of hypertension. Pt notified of Dr. Clancy's response. No further questions or concerns at this time.
--- NOTE | 2019-03-03 13:50 | NUR ---
Discharge instructions explained to pt with copy provided to pt along with prescriptions. Pt notified of follow up appts. Pt verbalizes understanding of instructions, signs to verify. No s/s of distress at this time. Pt waiting on ride for dismissal, will call when ready.
--- NOTE | 2019-03-03 15:10 | NUR ---
Pt ambulates off unit to private vehicle with all personal belongings, accompanied by RN. No s/s of distress noted.
[2019-03-03] MEDS ORDERED: IBUPROFEN 600 MG (MOTRIN) TAB PO SCH (18:00)
== END 2019-03-03 15:10 | disposition home or self-care (01) ==
LOC: SDC 08:52 → WS 13:10 → SDC 03-03 15:10
PROVIDERS: ATTEND Obstetrics & Gynecology
DX: N81.10 Cystocele, unspecified (principal); N81.6 Rectocele; I10 Essential (primary) hypertension; J30.9 Allergic rhinitis, unspecified; Z88.8 Allergy status to other drugs, medicaments and biological substances; Z88.5 Allergy status to narcotic agent; Z88.1 Allergy status to other antibiotic agents; Z79.899 Other long term (current) drug therapy; Z90.710 Acquired absence of both cervix and uterus; Z90.89 Acquired absence of other organs
CPT/HCPCS: 86850; 86900; 86901; 94664

== ENCOUNTER 2019-05-14 14:25 | Emergency (ER) | payer BC ==
[~2019-05-14] VITALS: Ht 172.7 cm; Wt 99.8 kg
[~2019-05-14 14:25] MED LIST changes: +ACHD5005 PO; +DOCU100C37 PO; +IBUP-844 PO
[2019-05-14] MEDS ORDERED: ASPIRIN 81 MG CHEW (CHILDREN'S ASA) ONE (14:33)
[2019-05-14] MEDS ORDERED: ASPIRIN 81 MG CHEW (CHILDREN'S ASA) PO ONE (14:45)
[2019-05-14] MEDS ORDERED: NITROGLYCERIN 0.4 MG SL TABS BTL 25'S SL PRN (14:45)
[2019-05-14 14:46] LABS: BASOPHILS % (AUTO) 0 % (0-10); EOSINOPHILS # (AUTO) 0.2 10^3/uL (0.0-0.3); EOSINOPHILS % (AUTO) 2 % (0-10); HEMATOCRIT 41 % (35-52); HEMOGLOBIN 13.6 G/DL (11.5-16.0); LYMPHOCYTES # (AUTO) 2.2 X 10^3 (1.0-4.0); LYMPHOCYTES % (AUTO) 24 % (12-44); MEAN CORPUSCULAR HEMOGLOBIN 30 PG (25-34); MEAN CORPUSCULAR HGB CONC 34 G/DL (32-36); MEAN CORPUSCULAR VOLUME 89 FL (80-99); MEAN PLATELET VOLUME 9.1 FL (7.4-10.4); MONOCYTES # (AUTO) 1.1 X 10^3 (0.0-1.0); MONOCYTES % (AUTO) 12 % (0-12); NEUTROPHILS # (AUTO) 5.6 X 10^3 (1.8-7.8); NEUTROPHILS % (AUTO) 62 % (42-75); PLATELET COUNT 284 10^3/uL (130-400); RED CELL DISTRIBUTION WIDTH 13.2 % (10.0-14.5); WHITE BLOOD COUNT 9.1 10^3/uL (4.3-11.0)
[2019-05-14 15:05] LABS: ALANINE AMINOTRANSFERASE 16 U/L (0-55); ALBUMIN 4.5 GM/DL (3.2-4.5); ALKALINE PHOSPHATASE 94 U/L (40-136); BILIRUBIN,TOTAL 0.4 MG/DL (0.1-1.0); BUN/CREATININE RATIO 21; CALCIUM 9.6 MG/DL (8.5-10.1); CARBON DIOXIDE 25 MMOL/L (21-32); CHLORIDE 105 MMOL/L (98-107); CREATININE SERUM 0.95 MG/DL (0.60-1.30); GFR ESTIMATED 60; GLUCOSE 113 MG/DL (70-105); INR 0.9 (0.8-1.4); LIPASE 52 U/L (8-78); MAGNESIUM 2.1 MG/DL (1.6-2.4); POTASSIUM 4.1 MMOL/L (3.6-5.0); PROTHROMBIN TIME PATIENT 12.8 SEC (12.2-14.7); SODIUM 140 MMOL/L (135-145); TOTAL PROTEIN 7.4 GM/DL (6.4-8.2)
--- NOTE | 2019-05-14 15:19 | ED Chest Pain ---
General Chief Complaint: Chest Pain Stated Complaint: CHEST PAIN Nursing Triage Note: Pt amb to room #4 with c/o medial chest discomfort radiating to back. 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 Pt reports she has experienced three episodes of chest discomfort within approx [id number]. Pt described discomfort as burning et pressure. A&OX4. Nursing Sepsis Screen: No Definite Risk Source: patient Exam Limitations: no limitations History of Present Illness Date Seen by Provider: May 14, 2019 Time Seen by Provider: 14:38 Initial Comments Here with report of low chest and epigastric abdominal pain that radiates to the lateral aspect of the chest and upper abdomen bilaterally. Has had intermittent onset over the past several weeks. She has had diet changes and is now avoiding wheat and made diet changes for weight loss. She has lost 4 pounds. Denies nausea, vomiting, breathing problems or sweating. States that she's had increased gas both belching and flatus over the last couple of weeks as well but certainly worse this morning. She states that she never usually belches. Unsure of what exacerbated or relieving factors other than belching. She has had echocardiogram about 6 months ago. She is currently treated for hypertension with carvedilol that is working partially. Does have family history of hypertension and diabetes. There is question of stroke in her father. Timing/Duration: intermittent, gone now, 12 hours Severity/Quality: moderate, pressure Location: central, epigastric Radiation: back (flank and lower rib margins bilateral) Prior CP/Workup: echocardiography Modifying Factors: improves with rest ASA po LEARNING DESIGNER: No NTG SL LEARNING DESIGNER: No Associated Symptoms: abdominal pain, back pain; No diaphoresis, No dizziness, No edema, No fatigue, No heartburn, No nausea/vomiting, No shortness of breath, No weakness Allergies and Home Medications Allergies Coded Allergies: lidocaine (Verified Allergy, Severe, ANAPHYLAXIS, 02/24/19) nitrofurantoin (Unverified Allergy, Severe, TACHYCARDIA, 02/24/19) codeine (Unverified Allergy, Mild, N/V, 02/24/19) amoxicillin (Verified Allergy, Unknown, 03/02/19) clavulanic acid (Verified Allergy, Unknown, 03/02/19) Home Medications Carvedilol 3.125 Mg Tablet, 3.125 MG PO BID, (Reported) Cholecalciferol (Vitamin D3) 1,000 Unit Capsule, 1,000 UNIT PO DAILY, (Reported) Docusate Sodium 100 Mg Capsule, 100 MG PO BID PRN for CONSTIPATION-1ST LINE Prescribed by: RIVKA CARBAJAL on 03/02/19 1020 Estradiol 0.5 Mg Tablet, 0.5 MG PO DAILY, (Reported) Flaxseed Oil 1,000 Mg Capsule, 1,000 MG PO DAILY, (Reported) Hydrocodone Bit/Acetaminophen 1 Tab Tab, 1-2 TAB PO Q6HR PRN for PAIN-MODERATE (5-7) Prescribed by: RIVKA CARBAJAL on 03/02/19 1020 Ibuprofen 600 Mg Tablet, 600 MG PO Q6HR Prescribed by: RIVKA CARBAJAL on 03/02/19 1020 Multivitamin 1 Each Capsule, 1 EACH PO DAILY, (Reported) Patient Home Medication List Home Medication List Reviewed: Yes Review of Systems Review of Systems Constitutional: see HPI EENTM: No Symptoms Reported Respiratory: Denies Cough, Denies Wheezing Cardiovascular: Chest Pain; Denies Edema, Denies Lightheadedness, Denies Palpitations, Denies Syncope Gastrointestinal: See HPI; Denies Nausea, Denies Vomiting Genitourinary: No Symptoms Reported Musculoskeletal: see HPI; No muscle weakness, No neck pain Skin: no symptoms reported Psychiatric/Neurological: No Symptoms Reported All Other Systems Reviewed Negative Unless Noted: Yes Past Kgopbgi-Omaweh-Ibrgzn Hx Past Med/Social Hx: Reviewed Nursing Past Med/Soc Hx Patient Social History Alcohol Use: Denies Use Recreational Drug Use: No Smoking Status: Never a Smoker 2nd Hand Smoke Exposure: No Recent Foreign Travel: No Contact w/Someone Who Travel: No Recent Infectious Disease Expo: No Recent Hopitalizations: No (SURG FEB 19) Physical Abuse: No Sexual Abuse: No Seasonal Allergies Seasonal Allergies: Yes Past Medical History Surgeries: Yes (OVARIAN CYST, L knee SCOPE, SEBACEOUS CYST, DISCECTOMY) Adenoidectomy, Hysterectomy, Tonsillectomy Respiratory: No Currently Using CPAP: No Currently Using BIPAP: No Cardiac: Yes (SL MURMUR) Hypertension, Palpitations Neurological: No Reproductive Disorders: No 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: Hysterectomy Sexually Transmitted Disease: No HIV/AIDS: No Genitourinary: No Gastrointestinal: No Musculoskeletal: Yes (HERNIATED DISC) Chronic Back Pain Endocrine: No (THYROID NODULES) HEENT: Yes (GLASSES) Loss of Vision: Denies Hearing Impairment: Denies Cancer: No Psychosocial: No Integumentary: No Blood Disorders: No Adverse Reaction/Blood Tranf: No (N/A) Family Medical History Reviewed Nursing Family Hx No Pertinent Family Hx, Diabetes, Hypertension, Stroke Physical Exam Vital Signs Vital Signs - First Documented 05/14/19 14:30 Temp 36.6 Pulse 79 Resp 17 B/P (MAP) 151/84 (106) Pulse Ox 98 O2 Delivery Room Air Capillary Refill : Less Than 3 Seconds Height, Weight, BMI Height: 5'8.00" Weight: 225lbs. 0.0oz. [id number]; 33.00 BMI Method:Stated General Appearance: No Apparent Distress, WD/WN HEENT: PERRL/EOMI, Pharynx Normal Neck: Non Tender, Supple Respiratory: Lungs Clear, Normal Breath Sounds Cardiovascular: Regular Rate, Rhythm, No Murmur Gastrointestinal: Non Tender, Soft Extremity: Normal Range of Motion, Non Tender Neurologic/Psychiatric: Alert, Oriented x3 Skin: Normal Color, Warm/Dry Progress/Results/Core Measures Results/Orders Lab Results Laboratory Tests Test 05/14/19 14:37 05/14/19 16:30 Range/Units White Blood Count 9.1 4.3-11.0 10^3/uL Red Blood Count 4.55 4.35-5.85 10^6/uL Hemoglobin 13.6 11.5-16.0 G/DL Hematocrit 41 35-52 % Mean Corpuscular Volume 89 80-99 FL Mean Corpuscular Hemoglobin 30 25-34 PG Mean Corpuscular Hemoglobin Concent 34 32-36 G/DL Red Cell Distribution Width 13.2 10.0-14.5 % Platelet Count 284 130-400 10^3/uL Mean Platelet Volume 9.1 7.4-10.4 FL Neutrophils (%) (Auto) 62 42-75 % Lymphocytes (%) (Auto) 24 12-44 % Monocytes (%) (Auto) 12 0-12 % Eosinophils (%) (Auto) 2 0-10 % Basophils (%) (Auto) 0 0-10 % Neutrophils # (Auto) 5.6 1.8-7.8 X 10^3 Lymphocytes # (Auto) 2.2 1.0-4.0 X 10^3 Monocytes # (Auto) 1.1 H 0.0-1.0 X 10^3 Eosinophils # (Auto) 0.2 0.0-0.3 10^3/uL Basophils # (Auto) 0.0 0.0-0.1 10^3/uL Prothrombin Time 12.8 12.2-14.7 SEC INR Comment 0.9 0.8-1.4 Activated Partial Thromboplast Time 25 24-35 SEC D-Dimer 0.47 0.00-0.49 UG/ML Sodium Level 140 135-145 MMOL/L Potassium Level 4.1 3.6-5.0 MMOL/L Chloride Level 105 98-107 MMOL/L Carbon Dioxide Level 25 21-32 MMOL/L Anion Gap 10 5-14 MMOL/L Blood Urea Nitrogen 20 H 7-18 MG/DL Creatinine 0.95 0.60-1.30 MG/DL Estimat Glomerular Filtration Rate 60 BUN/Creatinine Ratio 21 Glucose Level 113 H 70-105 MG/DL Calcium Level 9.6 8.5-10.1 MG/DL Corrected Calcium 9.2 8.5-10.1 MG/DL Magnesium Level 2.1 1.6-2.4 MG/DL Total Bilirubin 0.4 0.1-1.0 MG/DL Aspartate Amino Transf (AST/SGOT) 18 5-34 U/L Alanine Aminotransferase (ALT/SGPT) 16 0-55 U/L Alkaline Phosphatase 94 40-136 U/L Myoglobin 43.2 10.0-92.0 NG/ML Troponin I < 0.028 < 0.028 <0.028 NG/ML Total Protein 7.4 6.4-8.2 GM/DL Albumin 4.5 3.2-4.5 GM/DL Lipase 52 8-78 U/L My Orders Orders - EDUARDO CAPPS MD Cbc With Automated Diff (05/14/19 14:37) Magnesium (05/14/19 14:37) Chest 1 View, Ap/Pa Only (05/14/19 14:37) Ekg Tracing (05/14/19 14:37) Comprehensive Metabolic Panel (05/14/19 14:37) Myoglobin Serum (05/14/19 14:37) Protime With Inr (05/14/19 14:37) Partial Thromboplastin Time (05/14/19 14:37) O2 (05/14/19 14:37) Monitor-Rhythm Ecg Trace Only (05/14/19 14:37) Lipid Panel (05/15/19 06:00) Ed Iv/Invasive Line Start (05/14/19 14:37) Lipase (05/14/19 14:37) Fibrin Degradation Products (05/14/19 14:37) Nitroglycerin 0.4 Mg Btl 25's (Nitrostat (05/14/19 14:45) Aspirin Chewable Tablet (Baby Aspirin Ch (05/14/19 14:45) Aspirin Chewable Tablet (Baby Aspirin Ch (05/14/19 14:33) Troponin I (05/14/19 14:37) Troponin I (05/14/19 16:36) Medications Given in ED Current Medications Medications Dose Ordered Sig/Paula Route Start Time Stop Time Status Last Admin Dose Admin Aspirin 324 mg ONCE ONCE PO 05/14/19 14:45 05/14/19 14:46 DC 05/14/19 14:41 324 MG Vital Signs/I&O 05/14/19 05/14/19 14:30 14:35 Temp 36.6 Pulse 79 Resp 17 B/P (MAP) 151/84 (106) Pulse Ox 98 O2 Delivery Room Air Room Air Blood Pressure Mean: 106 Progress Progress Note : Progress Note Seen and evaluated. IV, labs, EKG and chest x-ray ordered. ASA 324 mg by mouth ordered. Nitroglycerin held as she is currently chest pain-free. Monitor patient. 1630: Repeat troponin ordered. Patient chest pain-free and has no problems currently. 1712: Repeat troponin negative. I will send a copy of the chart to Dr. Martinez. I did discuss the case with her. We will have the patient initiate probiotics and Beano. Discharged home with return precautions. Patient verbalize understanding instructions and agreement with plan. Initial ECG Impression Date: May 14, 2019 Initial ECG Impression Time: 14:33 Initial ECG Rate: 76 Initial ECG Rhythm: Normal Sinus Comment Sinus rhythm with normal axis. No evidence of ST elevation AR. Left atrial abnormality. Similar to previous of 12/25/12. Interpreted by me. Diagnostic Imaging Diagonstic Imaging: Xray Plain Films/CT/US/NM/MRI: chest Comments [facility], [place] NAME: MARLON BEAUCHAMP MED REC#: [id number] PT STATUS: REG ER : 1960 PHYSICIAN: EDUARDO CAPPS MD ADMIT DATE: 05/14/19/ER Draft Date of Exam:05/14/19 CHEST 1 VIEW, AP/PA ONLY INDICATION: Chest discomfort. TIME OF EXAM: 3:18 p.m. FINDINGS: The heart size is normal. The pulmonary vascularity is unremarkable. The lungs are clear. No infiltrate, effusion or pneumothorax is detected. IMPRESSION: No acute cardiopulmonary process is detected. Dictated on workstation # [id number] Dict: 05/14/19 1524 Trans: 05/14/19 1526 [id number] Interpreted by: JAVID SANTANA MD Electronically signed by: Departure Impression Primary Impression: Chest pain Qualified Codes: R07.9 - Chest pain, unspecified Disposition: HOME, SELF-CARE Condition: Improved Departure-Patient Inst. Referrals: MARLON MARTINEZ MD (PCP/Family) Primary Care Physician NIEVES MORE MD FACP [facility] Cindy MASCORRO MD, BASHAR J MD Patient Instructions: Chest Pain (DC) Add. Discharge Instructions: All discharge instructions reviewed with patient and/or family. Voiced understanding. You should follow-up with your DrMary as scheduled. You may follow-up with your echo technician as well or one of the ones listed. You should have follow-up for possible stress test if indicated. You may initiate [id number] probiotics or Beano as suggested by Dr. Martinez. Return for worse pain, fever, vomiting, weakness, breathing problems or other concerns as needed. Copy Copies To 1: MARLON MARTINEZ MD, TIMOTHY D MD May 14, 2019 15:19
--- NOTE | 2019-05-14 15:27 | Diagnostic Imaging Report ---
INDICATION: Chest discomfort. TIME OF EXAM: 3:18 p.m. FINDINGS: The heart size is normal. The pulmonary vascularity is unremarkable. The lungs are clear. No infiltrate, effusion or pneumothorax is detected. IMPRESSION: No acute cardiopulmonary process is detected. Dictated by: Dictated on workstation # [id number]
[2019-05-14 17:29] VITALS: BP 155/71
--- OUTSIDE RECORDS SUMMARY | 2019-05-16 14:17 | XMS REPORT | Continuity of Care Document ---
Author Organization Unknown Address Unknown Phone Unavailable Allergies Active Description Code Type Severity Reaction Onset Reported/Identified Relationship to Patient Clinical Status Yes codeine [id number] Drug Allergy Mild N/A 06/23/[id number] de souza Allergy Mild N/A 06/23/2008 Yes lidocaine [id number] Drug Allergy Unknown ANAPHYLAXIS 02/03/2015 Yes lidocaine [id number] Drug Allergy Severe ANAPHYLAXIS 02/24/[id number] de souza Allergy Severe TACHYCARDIA 02/24/2019 Yes codeine [id number] Drug Allergy Mild N/V 02/24/2019 Yes amoxicillin [id number] Drug Aller gy Unknown N/A 03/02/2019 Yes clavulanic acid [id number] D rug Allergy Unknown N/A 03/02/2019 Medications There is no data. Problems Date Dx Coded Attending Type Code Diagnosis Diagnosed By 12/28/2005 Ot 724.2 12/28/2005 Ot V57.1 02/22/2014 MARLON SANTIAGO MD Ot 620.2 02/22/2014 MARLON SANTIAGO MD Ot 753.10 02/27/2014 THIAGO CODY APRN Ot 728.71 PLANTAR FIBROMATOSIS 02/27/2014 THIAGO CODY APRN Ot 788 .5 OLIGURIA ANURIA 03/03/2014 Ot V76.12 03/03/2014 Ot V76.12 03/03/2014 Ot 785.6 03/03/2014 Ot 240.9 03/03/2014 Ot 785.6 03/03/2014 Ot V76.12 03/03/2014 Ot 795.79 03/03/2014 Ot 795.79 03/03/2014 Ot 246.2 03/03/2014 Ot 784.2 03/03/2014 Ot 288.9 03/03/2014 Ot 375.15 03/03/2014 Ot 527.7 03/03/2014 Ot 719.40 03/03/2014 Ot 785.6 03/03/2014 Ot V76.12 03/03/2014 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 Ot 786.50 03/03/2014 DAVON VASQUEZ JAYLA Eduardo Ot V76.1 2 03/03/2014 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 Ot 733.20 03/03/2014 PAMELA MOSQUERA, MARLON Merino Ot 593.9 03/03/2014 PAMELA MOSQUERA, MARLON Merino Ot 620.2 03/03/2014 PAMELA MOSQUERA, MARLON A Ot 753.10 03/29/2014 GAGANDEEP BLAND CARD DEALER Ot V76.1 2 12/29/2014 VIVIANA MOSQUERA, IZZY Desai Ot E04 .1 12/29/2014 VIVIANA MOSQUERA, IZZY Desai Ot R94 .6 02/04/2015 PATRICK MOSQUERA, FATOUMATA White Ot L72.3 SEBACEOUS CYST 04/01/2015 GAGANDEEP BLAND CARD DEALER Ot Z12.3 1 05/09/2015 ISRAEL JOSUE ATOMIC FUEL ASSEMBLER Ot M54.9 05/09/2015 ISRAEL JOSUE ATOMIC FUEL ASSEMBLER Ot R07.81 08/31/2015 LEONARDO IZQUIERDO MD Ot Z01.818 ENCOUNTER FOR OTHER PREPROCEDURAL EXAMIN 08/31/2015 LEONARDO IZQUIERDO MD Ot Z12. 11 ENCOUNTER FOR SCREENING FOR MALIGNANT NE 09/01/2015 LEONARDO IZQUIERDO MD Ot Z01.818 ENCOUNTER FOR OTHER PREPROCEDURAL EXAMIN 09/01/2015 LEONARDO IZQUIERDO MD Ot Z12. 11 ENCOUNTER FOR SCREENING FOR MALIGNANT NE 09/02/2015 LEONARDO IZQUIERDO MD Ot K63. 5 POLYP OF COLON 09/02/2015 LEONARDO IZQUIERDO MD Ot Z12. 11 ENCOUNTER FOR SCREENING FOR MALIGNANT NE 09/07/2015 LEONARDO IZQUIERDO MD Ot K63. 5 POLYP OF COLON 09/07/2015 LEONARDO IZQUIERDO MD Ot Z12. 11 ENCOUNTER FOR SCREENING FOR MALIGNANT NE 09/22/2015 LEONARDO IZQUIERDO MD Ot K63. 5 POLYP OF COLON 09/22/2015 LEONARDO IZQUIERDO MD Ot Z12. 11 ENCOUNTER FOR SCREENING FOR MALIGNANT NE 06/11/2016 Ot 795.79 OTH AND UNSPEC NONSPECIFIC IMMUNOLOGICAL 06/11/2016 Ot 795.79 OTH AND UNSPEC NONSPECIFIC IMMUNOLOGICAL 06/11/2016 Ot 246.2 CYST OF THYROID 06/11/2016 Ot 784.2 SWEL LING IN HEAD NECK 06/11/2016 Ot 288.9 WBC DISEASE NOS 06/11/2016 Ot 375.15 TEA R FILM INSUFFIC NOS 06/11/2016 Ot 527.7 SALI VARY SECRETION DIS 06/11/2016 Ot 719.40 NABOR NT PAIN-UNSPEC 06/11/2016 Ot 785.6 ENLA RGEMENT LYMPH NODES 06/11/2016 Ot V76.12 OTH SCREEN MAMMO- MALIGN NEOPLASM OF JASE 06/11/2016 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 Ot 786.50 CHEST PAIN NOS 06/11/2016 DAVON VASQUEZ JAYLA Eduardo Ot V76.1 2 OTH SCREEN MAMMO-MALIGN NEOPLASM OF JASE 06/11/2016 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 Ot 733.20 CYST OF BONE NOS 06/11/2016 PAMELA MOSQUERA, MARLON Merino Ot 593.9 RENAL URETERAL DIS NOS 06/11/2016 PAMELA MOSQUERA, MARLON Merino Ot 620.2 OVARIAN CYST NEC/NOS 06/11/2016 PAMELA MOSQUERA, MARLON Merino Ot 753.10 CYSTIC KIDNEY DISEASE, UNSPECIFIED 06/11/2016 GAGANDEEP BLAND Ot V76.1 2 OTH SCREEN MAMMO-MALIGN NEOPLASM OF JASE 06/11/2016 VIVIANA MOSQUERA, IZZY Desai Ot E04 .1 NONTOXIC SINGLE THYROID NODULE 06/11/2016 IZZY MICHELLE MD Ot R94 .6 ABNORMAL RESULTS OF THYROID FUNCTION JO 06/11/2016 FATOUMATA NGUYEN MD Ot L72.3 SEBACEOUS CYST 06/11/2016 PATRICK MOSQUERA, FATOUMATA White Ot Z01.818 ENCOUNTER FOR OTHER PREPROCEDURAL EXAMIN 06/11/2016 GAGANDEEP BLAND Ot Z12.3 1 ENCNTR SCREEN MAMMOGRAM FOR MALIGNANT NE 06/11/2016 ISAREL JOSUE APRN Ot M54.9 DORSALGIA, UNSPECIFIED 06/11/2016 ISRAEL JOSUE APRN Ot R07.81 PLEURODYNIA 06/29/2016 GAGANDEEP BLAND Ot Z12.3 1 ENCNTR SCREEN MAMMOGRAM FOR MALIGNANT NE 07/04/2016 Ot 795.79 OTH AND UNSPEC NONSPECIFIC IMMUNOLOGICAL 07/04/2016 Ot 795.79 OTH AND UNSPEC NONSPECIFIC IMMUNOLOGICAL 07/04/2016 Ot 246.2 CYST OF THYROID 07/04/2016 Ot 784.2 SWEL LING IN HEAD NECK 07/04/2016 Ot 288.9 WBC DISEASE NOS 07/04/2016 Ot 375.15 TEA R FILM INSUFFIC NOS 07/04/2016 Ot 527.7 SALI VARY SECRETION DIS 07/04/2016 Ot 719.40 NABOR NT PAIN-UNSPEC 07/04/2016 Ot 785.6 ENLA RGEMENT LYMPH NODES 07/04/2016 Ot V76.12 OTH SCREEN MAMMO- MALIGN NEOPLASM OF JASE 07/04/2016 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 Ot 786.50 CHEST PAIN NOS 07/04/2016 JAYLA MAYS DO Ot V76.1 2 OTH SCREEN MAMMO-MALIGN NEOPLASM OF JASE 07/04/2016 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 Ot 733.20 CYST OF BONE NOS 07/04/2016 PAMELA MOSQUERA, MARLON Merino Ot 593.9 RENAL URETERAL DIS NOS 07/04/2016 MARLON SANTIAGO MD Ot 620.2 OVARIAN CYST NEC/NOS 07/04/2016 MARLON SANTIAGO MD Ot 753.10 CYSTIC KIDNEY DISEASE, UNSPECIFIED 07/04/2016 GAGANDEEP BLAND Ot V76.1 2 OTH SCREEN MAMMO-MALIGN NEOPLASM OF JASE 07/04/2016 VIVIANA MOSQUERA, IZZY Desai Ot E04 .1 NONTOXIC SINGLE THYROID NODULE 07/04/2016 VIVIANA MOSQUERA, IZZY Desai Ot R94 .6 ABNORMAL RESULTS OF THYROID FUNCTION JO 07/04/2016 PATRICK MOSQUERA, FATOUMATA White Ot L72.3 SEBACEOUS CYST 07/04/2016 PATRICK MOSQUERA, FATOUMATA White Ot Z01.818 ENCOUNTER FOR OTHER PREPROCEDURAL EXAMIN 07/04/2016 GAGANDEEP BLAND Ot Z12.3 1 ENCNTR SCREEN MAMMOGRAM FOR MALIGNANT NE 07/04/2016 ISRAEL JOSUE APRN Ot M54.9 DORSALGIA, UNSPECIFIED 07/04/2016 ISRAEL JOSUE APRN Ot R07.81 PLEURODYNIA 07/04/2016 GAGANDEEP BLANDP Ot Z12.3 1 ENCNTR SCREEN MAMMOGRAM FOR MALIGNANT NE 07/04/2016 CED MOSQUERA, RICKIE Lloyd Ot M48.06 SPINAL STENOSIS, LUMBAR REGION 07/04/2016 RICKIE COUGHLIN MD Ot M51.16 INTERVERTEBRAL DISC DISORDERS W RADICULO 07/04/2016 RICKIE COUGHLIN MD Ot M54.5 LOW BACK PAIN 07/04/2016 RICKIE COUGHLIN MD Ot M48.06 SPINAL STENOSIS, LUMBAR REGION 07/04/2016 RICKIE COUGHLIN MD Ot M51.16 INTERVERTEBRAL DISC DISORDERS W RADICULO 07/04/2016 RICKIE COUGHLIN MD Ot M54.5 LOW BACK PAIN 07/10/2016 Ot 795.79 OTH AND UNSPEC NONSPECIFIC IMMUNOLOGICAL 07/10/2016 Ot 795.79 OTH AND UNSPEC NONSPECIFIC IMMUNOLOGICAL 07/10/2016 Ot 246.2 CYST OF THYROID 07/10/2016 Ot 784.2 SWEL LING IN HEAD NECK 07/10/2016 Ot 288.9 WBC DISEASE NOS 07/10/2016 Ot 375.15 TEA R FILM INSUFFIC NOS 07/10/2016 Ot 527.7 SALI VARY SECRETION DIS 07/10/2016 Ot 719.40 NABOR NT PAIN-UNSPEC 07/10/2016 Ot 785.6 ENLA RGEMENT LYMPH NODES 07/10/2016 Ot V76.12 OTH SCREEN MAMMO- MALIGN NEOPLASM OF JASE 07/10/2016 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 Ot 786.50 CHEST PAIN NOS 07/10/2016 JAYLA MAYS DO Ot V76.1 2 OTH SCREEN MAMMO-MALIGN NEOPLASM OF JASE 07/10/2016 TEMO DICKSON Ot 733.20 CYST OF BONE NOS 07/10/2016 MARLON SANTIAGO MD Ot 593.9 RENAL URETERAL DIS NOS 07/10/2016 MARLON SANTIAGO MD Ot 620.2 OVARIAN CYST NEC/NOS 07/10/2016 MARLON SANTIAGO MD Ot 753.10 CYSTIC KIDNEY DISEASE, UNSPECIFIED 07/10/2016 GAGANDEEP BLAND Ot V76.1 2 OTH SCREEN MAMMO-MALIGN NEOPLASM OF JASE 07/10/2016 VIVIANA MOSQUERA, IZZY Desai Ot E04 .1 NONTOXIC SINGLE THYROID NODULE 07/10/2016 VIVIANA MOSQUERA, IZZY Desai Ot R94 .6 ABNORMAL RESULTS OF THYROID FUNCTION JO 07/10/2016 PATRICK MOSQUERA, FATOUMATA White Ot L72.3 SEBACEOUS CYST 07/10/2016 PATRICK MOSQUERA, FATOUMATA White Ot Z01.818 ENCOUNTER FOR OTHER PREPROCEDURAL EXAMIN 07/10/2016 GAGANDEEP BLAND Ot Z12.3 1 ENCNTR SCREEN MAMMOGRAM FOR MALIGNANT NE 07/10/2016 ISRAEL JOSUE ATOMIC FUEL ASSEMBLER Ot M54.9 DORSALGIA, UNSPECIFIED 07/10/2016 ISRAEL JOSUE ATOMIC FUEL ASSEMBLER Ot R07.81 PLEURODYNIA 07/10/2016 GAGANDEEP BLAND Ot Z12.3 1 ENCNTR SCREEN MAMMOGRAM FOR MALIGNANT NE 08/07/2016 CED MOSQUERA, RICKIE Lloyd Ot M48.06 SPINAL STENOSIS, LUMBAR REGION 08/07/2016 CED MOSQUERA, RICKIE Lloyd Ot M51.16 INTERVERTEBRAL DISC DISORDERS W RADICULO 08/07/2016 CED MOSQUERA, RICKIE Lloyd Ot M54.5 LOW BACK PAIN 08/31/2016 Ot 795.79 OTH AND UNSPEC NONSPECIFIC IMMUNOLOGICAL 08/31/2016 Ot 795.79 OTH AND UNSPEC NONSPECIFIC IMMUNOLOGICAL 08/31/2016 Ot 246.2 CYST OF THYROID 08/31/2016 Ot 784.2 SWEL LING IN HEAD NECK 08/31/2016 Ot 288.9 WBC DISEASE NOS 08/31/2016 Ot 375.15 TEA R FILM INSUFFIC NOS 08/31/2016 Ot 527.7 SALI VARY SECRETION DIS 08/31/2016 Ot 719.40 NABOR NT PAIN-UNSPEC 08/31/2016 Ot 785.6 ENLA RGEMENT LYMPH NODES 08/31/2016 Ot V76.12 OTH SCREEN MAMMO- MALIGN NEOPLASM OF JASE 08/31/2016 TEMO DICKSON Ot 786.50 CHEST PAIN NOS 08/31/2016 JAYLA MAYS DO Ot V76.1 2 OTH SCREEN MAMMO-MALIGN NEOPLASM OF JASE 08/31/2016 TEMO DICKSON Ot 733.20 CYST OF BONE NOS 08/31/2016 MARLON SANTIAGO MD Ot 593.9 RENAL URETERAL DIS NOS 08/31/2016 MARLON SANTIAGO MD Ot 620.2 OVARIAN CYST NEC/NOS 08/31/2016 PAMELA MD, MARLON A Ot 753.10 CYSTIC KIDNEY DISEASE, UNSPECIFIED 08/31/2016 GAGANDEEP BLAND Ot V76.1 2 OTH SCREEN MAMMO-MALIGN NEOPLASM OF JASE 08/31/2016 VIVIANA MOSQUERA, IZZY Desai Ot E04 .1 NONTOXIC SINGLE THYROID NODULE 08/31/2016 VIVIANA MOSQUERA, IZZY Desai Ot R94 .6 ABNORMAL RESULTS OF THYROID FUNCTION JO 08/31/2016 PATRICK MOSQUERA, FATOUMATA White Ot L72.3 SEBACEOUS CYST 08/31/2016 PATRICK MOSQUERA, FATOUMATA White Ot Z01.818 ENCOUNTER FOR OTHER PREPROCEDURAL EXAMIN 08/31/2016 GAGANDEEP BLAND Ot Z12.3 1 ENCNTR SCREEN MAMMOGRAM FOR MALIGNANT NE 08/31/2016 ISRAEL JOSUE APRN Ot M54.9 DORSALGIA, UNSPECIFIED 08/31/2016 ISRAEL JOSUE APRN Ot R07.81 PLEURODYNIA 08/31/2016 GAGANDEEP BLAND Ot Z12.3 1 ENCNTR SCREEN MAMMOGRAM FOR MALIGNANT NE 10/22/2016 Ot V76.12 10/22/2016 Ot 620.2 10/22/2016 Ot 787.3 10/22/2016 Ot 789.04 10/22/2016 Ot V76.12 10/22/2016 Ot 785.1 10/22/2016 Ot 785.1 10/22/2016 Ot 780.2 10/22/2016 Ot 785.1 10/22/2016 Ot 473.9 10/22/2016 Ot V76.12 10/22/2016 Ot V76.12 OTH SCREEN MAMMO- MALIGN NEOPLASM OF JASE 10/22/2016 Ot 785.6 ENLA RGEMENT LYMPH NODES 10/22/2016 Ot 240.9 GOIT ER NOS 10/22/2016 Ot 785.6 ENLA RGEMENT LYMPH NODES 10/22/2016 Ot V76.12 OTH SCREEN MAMMO- MALIGN NEOPLASM OF JASE 10/22/2016 Ot 795.79 OTH AND UNSPEC NONSPECIFIC IMMUNOLOGICAL 10/22/2016 Ot 795.79 OTH AND UNSPEC NONSPECIFIC IMMUNOLOGICAL 10/22/2016 Ot 246.2 CYST OF THYROID 10/22/2016 Ot 784.2 SWEL LING IN HEAD NECK 10/22/2016 Ot 288.9 WBC DISEASE NOS 10/22/2016 Ot 375.15 TEA R FILM INSUFFIC NOS 10/22/2016 Ot 527.7 SALI VARY SECRETION DIS 10/22/2016 Ot 719.40 NABOR NT PAIN-UNSPEC 10/22/2016 Ot 785.6 ENLA RGEMENT LYMPH NODES 10/22/2016 Ot V76.12 OTH SCREEN MAMMO- MALIGN NEOPLASM OF JASE 10/22/2016 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 Ot 786.50 CHEST PAIN NOS 10/22/2016 JAYLA MAYS DO Ot V76.1 2 OTH SCREEN MAMMO-MALIGN NEOPLASM OF JASE 10/22/2016 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 Ot 733.20 CYST OF BONE NOS 10/22/2016 PAMELA MOSQUERA, MARLON Merino Ot 593.9 RENAL URETERAL DIS NOS 10/22/2016 PAMELA MOSQUERA, MARLON Merino Ot 620.2 OVARIAN CYST NEC/NOS 10/22/2016 PAMELA MOSQUERA, MARLON Merino Ot 753.10 CYSTIC KIDNEY DISEASE, UNSPECIFIED 10/22/2016 GAGANDEEP BLAND Ot V76.1 2 OTH SCREEN MAMMO-MALIGN NEOPLASM OF JASE 10/22/2016 VIVIANA MOSQUERA, IZZY Desai Ot E04 .1 NONTOXIC SINGLE THYROID NODULE 10/22/2016 VIVIANA MOSQUERA, IZZY Desai Ot R94 .6 ABNORMAL RESULTS OF THYROID FUNCTION JO 10/22/2016 PATRICK MOSQUERA, FATOUMATA White Ot L72.3 SEBACEOUS CYST 10/22/2016 PATRICK MOSQUERA, FATOUMATA White Ot Z01.818 ENCOUNTER FOR OTHER PREPROCEDURAL EXAMIN 10/22/2016 GAGANDEEP BLAND Ot Z12.3 1 ENCNTR SCREEN MAMMOGRAM FOR MALIGNANT NE 10/22/2016 ISRAEL JOSUE APRN Ot M54.9 DORSALGIA, UNSPECIFIED 10/22/2016 ISRAEL JOSUE ATOMIC FUEL ASSEMBLER Ot R07.81 PLEURODYNIA 10/22/2016 GAGANDEEP BLAND Ot Z12.3 1 ENCNTR SCREEN MAMMOGRAM FOR MALIGNANT NE 03/28/2017 Ot 288.9 WBC DISEASE NOS 03/28/2017 Ot 375.15 TEA R FILM INSUFFIC NOS 03/28/2017 Ot 527.7 SALI VARY SECRETION DIS 03/28/2017 Ot 719.40 NABOR NT PAIN-UNSPEC 03/28/2017 Ot 785.6 ENLA RGEMENT LYMPH NODES 03/28/2017 Ot V76.12 OTH SCREEN MAMMO- MALIGN NEOPLASM OF JASE 03/28/2017 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 Ot 786.50 CHEST PAIN NOS 03/28/2017 JAYLA MAYS DO Ot V76.1 2 OTH SCREEN MAMMO-MALIGN NEOPLASM OF JASE 03/28/2017 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 Ot 733.20 CYST OF BONE NOS 03/28/2017 PAMELA MOSQUERA, MARLON Merino Ot 593.9 RENAL URETERAL DIS NOS 03/28/2017 MARLON SANTIAGO MD Ot 620.2 OVARIAN CYST NEC/NOS 03/28/2017 MARLON SANTIAGO MD Ot 753.10 CYSTIC KIDNEY DISEASE, UNSPECIFIED 03/28/2017 GAGANDEEP BLAND Ot V76.1 2 OTH SCREEN MAMMO-MALIGN NEOPLASM OF JASE 03/28/2017 VIVIANA MOSQUERA, IZZY Desai Ot E04 .1 NONTOXIC SINGLE THYROID NODULE 03/28/2017 VIVIANA MOSQUERA, IZYZ Desai Ot R94 .6 ABNORMAL RESULTS OF THYROID FUNCTION JO 03/28/2017 PATRICK MOSQUERA, FATOUMATA White Ot L72.3 SEBACEOUS CYST 03/28/2017 PATRICK MOSQUERA, FATOUMATA White Ot Z01.818 ENCOUNTER FOR OTHER PREPROCEDURAL EXAMIN 03/28/2017 GAGANDEEP BLAND Ot Z12.3 1 ENCNTR SCREEN MAMMOGRAM FOR MALIGNANT NE 03/28/2017 ISRAEL JOSUE ATOMIC FUEL ASSEMBLER Ot M54.9 DORSALGIA, UNSPECIFIED 03/28/2017 ISRAEL JOSUE ATOMIC FUEL ASSEMBLER Ot R07.81 PLEURODYNIA 03/28/2017 GAGANDEEP BLAND CARD DEALER Ot Z12.3 1 ENCNTR SCREEN MAMMOGRAM FOR MALIGNANT NE 08/02/2017 GAGANDEEP BLANDP Ot Z12.3 1 ENCNTR SCREEN MAMMOGRAM FOR MALIGNANT NE 08/15/2017 GAGANDEEP BLANDP Ot Z12.3 1 ENCNTR SCREEN MAMMOGRAM FOR MALIGNANT NE 01/28/2018 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 Ot L08 .9 LOCAL INFECTION OF THE SKIN AND SUBCUTAN 01/28/2018 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 Ot L72 .3 SEBACEOUS CYST 01/30/2018 LARERY, MIGEL BAND BIAS MACHINE OPERATOR-C Ot L08 .9 LOCAL INFECTION OF THE SKIN AND SUBCUTAN 01/30/2018 CHEPE MIGEL BAND BIAS MACHINE OPERATOR-C Ot L72 .3 SEBACEOUS CYST 02/06/2018 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 Ot L08 .9 LOCAL INFECTION OF THE SKIN AND SUBCUTAN 02/06/2018 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 Ot L72 .3 SEBACEOUS CYST 03/07/2018 ISRAEL JOSUE ATOMIC FUEL ASSEMBLER Ot 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 03/07/2018 ISRAEL JOSUE ATOMIC FUEL ASSEMBLER Ot N63.20 UNSPECIFIED LUMP IN THE LEFT BREAST, UNS 03/20/2018 ISRAEL JOSUE ATOMIC FUEL ASSEMBLER Ot 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 03/20/2018 ISRAEL JOSUE ATOMIC FUEL ASSEMBLER Ot N63.20 UNSPECIFIED LUMP IN THE LEFT BREAST, UNS 10/02/2018 GAGANDEEP BLAND CARD DEALER Ot Z12.3 1 ENCNTR SCREEN MAMMOGRAM FOR MALIGNANT NE 10/17/2018 GAGANDEEP BLAND CARD DEALER Ot Z12.3 1 ENCNTR SCREEN MAMMOGRAM FOR MALIGNANT NE 02/24/2019 FENECH DO, RIVKA S Ot N81.10 CYSTOCELE, UNSPECIFIED 02/24/2019 FENECH DO, RIVKA S Ot N81.6 RECTOCELE 02/24/2019 FENECH DO, RIVKA S Ot Z01.812 ENCOUNTER FOR PREPROCEDURAL LABORATORY E 02/27/2019 FENECH DO RIVKA S Ot N81.10 CYSTOCELE, UNSPECIFIED 02/27/2019 FENECH DO RIVKA S Ot N81.6 RECTOCELE 02/27/2019 FENECH DO RIVKA S Ot Z01.812 ENCOUNTER FOR PREPROCEDURAL LABORATORY E 03/03/2019 FENECH DO, RIVKA S Ot I1 0 ESSENTIAL (PRIMARY) HYPERTENSION 03/03/2019 FENECH DO RIVKA S Ot J30.9 ALLERGIC RHINITIS, UNSPECIFIED 03/03/2019 FENECH DO RIVKA S Ot N81.10 CYSTOCELE, UNSPECIFIED 03/03/2019 FENECH DO RIVKA S Ot N81.6 RECTOCELE 03/03/2019 FENECH DO RIVKA S Ot Z79.899 OTHER [facility] (CURRENT) DRUG THERAPY 03/03/2019 FENECH DO RIVKA S Ot Z88.1 ALLERGY STATUS TO OTHER ANTIBIOTIC AGENT 03/03/2019 FENECH DO, RIVKA S Ot Z88.5 ALLERGY STATUS TO NARCOTIC AGENT STATUS 03/03/2019 FENECH DO, RIVKA S Ot Z88.8 ALLERGY STATUS TO OTH DRUG/MEDS/BIOL SUB 03/03/2019 FENECH DO, RIVKA S Ot Z90.710 ACQUIRED ABSENCE OF BOTH CERVIX AND UTER 03/03/2019 FENECH DO, RIVKA S Ot Z90.89 ACQUIRED ABSENCE OF OTHER ORGANS 03/06/2019 FENECH DO, RIVKA S Ot I1 0 ESSENTIAL (PRIMARY) HYPERTENSION 03/06/2019 FENECH DO, RIVKA S Ot J30.9 ALLERGIC RHINITIS, UNSPECIFIED 03/06/2019 FENECH DO, RIVKA S Ot N81.10 CYSTOCELE, UNSPECIFIED 03/06/2019 FENECH DO, RIVKA S Ot N81.6 RECTOCELE 03/06/2019 FENECH DO, RIVKA S Ot Z79.899 OTHER [facility] (CURRENT) DRUG THERAPY 03/06/2019 FENECH DO, RIVKA S Ot Z88.1 ALLERGY STATUS TO OTHER ANTIBIOTIC AGENT 03/06/2019 FENECH DO, RIVKA S Ot Z88.5 ALLERGY STATUS TO NARCOTIC AGENT STATUS 03/06/2019 FENECH DO, RIVKA S Ot Z88.8 ALLERGY STATUS TO OTH DRUG/MEDS/BIOL SUB 03/06/2019 FENECH DO, RIVKA S Ot Z90.710 ACQUIRED ABSENCE OF BOTH CERVIX AND UTER 03/06/2019 FENECH DO, RIVKA S Ot Z90.89 ACQUIRED ABSENCE OF OTHER ORGANS 03/06/2019 FENECH DO, RIVKA Mondragon Ot I1 0 ESSENTIAL (PRIMARY) HYPERTENSION 03/06/2019 FENECH DO, RIVKA Mondragon Ot J30.9 ALLERGIC RHINITIS, UNSPECIFIED 03/06/2019 FENECH DO, RIVKA S Ot N81.10 CYSTOCELE, UNSPECIFIED 03/06/2019 FENECH DO, RIVKA S Ot N81.6 RECTOCELE 03/06/2019 FENECH DO, RIVKA S Ot Z79.899 OTHER [place] (CURRENT) DRUG THERAPY 03/06/2019 FENECH DO, RIVKA S Ot Z88.1 ALLERGY STATUS TO OTHER ANTIBIOTIC AGENT 03/06/2019 FENECH DO, RIVKA S Ot Z88.5 ALLERGY STATUS TO NARCOTIC AGENT STATUS 03/06/2019 FENECH DO, RIVKA S Ot Z88.8 ALLERGY STATUS TO OTH DRUG/MEDS/BIOL SUB 03/06/2019 FENECH DO, RIVKA Mondragon Ot Z90.710 ACQUIRED ABSENCE OF BOTH CERVIX AND UTER 03/06/2019 FENECH DO, RIVKA Mondragon Ot Z90.89 ACQUIRED ABSENCE OF OTHER ORGANS 03/08/2019 [facility] RIVKA Mondragon Ot I1 0 ESSENTIAL (PRIMARY) HYPERTENSION 03/08/2019 FENECH DO, RIVKA Mondragon Ot J30.9 ALLERGIC RHINITIS, UNSPECIFIED 03/08/2019 FENECH DO, RIVKA Mondragon Ot N81.10 CYSTOCELE, UNSPECIFIED 03/08/2019 FENECH DO, RIVKA Mondragon Ot N81.6 RECTOCELE 03/08/2019 FENECH DO, RIVKA Mondragon Ot Z79.899 OTHER [facility] (CURRENT) DRUG THERAPY 03/08/2019 [facility] DO, RIVKA Mondragon Ot Z88.1 ALLERGY STATUS TO OTHER ANTIBIOTIC AGENT 03/08/2019 [facility] DO, RIVKA Mondragon Ot Z88.5 ALLERGY STATUS TO NARCOTIC AGENT STATUS 03/08/2019 [facility] DO, RIVKA Mondragon Ot Z88.8 ALLERGY STATUS TO OT DRUG/MEDS/BIOL SUB 03/08/2019 [facility] DO, RIVKA Mondragon Ot Z90.710 ACQUIRED ABSENCE OF BOTH CERVIX AND UTER 03/08/2019 [facility] DO, RIVKA Mondragon Ot Z90.89 ACQUIRED ABSENCE OF OTHER ORGANS 04/02/2019 TEMO DICKSON Ot 733.20 CYST OF BONE NOS 04/02/2019 MARLON SANTIAGO MD Ot 593.9 RENAL URETERAL DIS NOS 04/02/2019 MARLON SANTIAGO MD Ot 620.2 OVARIAN CYST NEC/NOS 04/02/2019 MARLON SANTIAGO MD Ot 753.10 CYSTIC KIDNEY DISEASE, UNSPECIFIED 04/02/2019 GAGANDEEP BLAND Ot V76.1 2 OTH SCREEN MAMMO-MALIGN NEOPLASM OF JASE 04/02/2019 IZZY MICHELLE MD Ot E04 .1 NONTOXIC SINGLE THYROID NODULE 04/02/2019 IZZY MICHELLE MD Ot R94 .6 ABNORMAL RESULTS OF THYROID FUNCTION JO 04/02/2019 PATRICK MOSQUERA, FATOUMATA White Ot L72.3 SEBACEOUS CYST 04/02/2019 FATOUMATA NGUYEN MD Ot Z01.818 ENCOUNTER FOR OTHER PREPROCEDURAL EXAMIN 04/02/2019 GAGANDEEP BLAND Ot Z12.3 1 ENCNTR SCREEN MAMMOGRAM FOR MALIGNANT NE 04/02/2019 ISRAEL JOSUE ATOMIC FUEL ASSEMBLER Ot M54.9 DORSALGIA, UNSPECIFIED 04/02/2019 ISRAEL JOSUE ATOMIC FUEL ASSEMBLER Ot R07.81 PLEURODYNIA 04/02/2019 GAGANDEEP BLAND CARD DEALER Ot Z12.3 1 ENCNTR SCREEN MAMMOGRAM FOR MALIGNANT NE 04/02/2019 GAGANDEEP BLAND CARD DEALER Ot Z12.3 1 ENCNTR SCREEN MAMMOGRAM FOR MALIGNANT NE 04/02/2019 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 Ot L08 .9 LOCAL INFECTION OF THE SKIN AND SUBCUTAN 04/02/2019 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 Ot L72 .3 SEBACEOUS CYST 04/02/2019 ISRAEL JOSUE ATOMIC FUEL ASSEMBLER Ot 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 04/02/2019 ISRAEL JOSUE APRN Ot N63.20 UNSPECIFIED LUMP IN THE LEFT BREAST, UNS 04/02/2019 GAGANDEEP BLAND CARD DEALER Ot Z12.3 1 ENCNTR SCREEN MAMMOGRAM FOR MALIGNANT NE 05/14/2019 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 Ot 733.20 CYST OF BONE NOS 05/14/2019 MARLON SANTIAGO MD Ot 593.9 RENAL URETERAL DIS NOS 05/14/2019 MARLON SANTIAGO MD Ot 620.2 OVARIAN CYST NEC/NOS 05/14/2019 MARLON SANTIAGO MD Ot 753.10 CYSTIC KIDNEY DISEASE, UNSPECIFIED 05/14/2019 GAGANDEEP BLAND CARD DEALER Ot V76.1 2 OTH SCREEN MAMMO-MALIGN NEOPLASM OF JASE 05/14/2019 VIVIANA MOSQUERA, IZZY Desai Ot E04 .1 NONTOXIC SINGLE THYROID NODULE 05/14/2019 VIVIANA MOSQUERA, IZZY Desai Ot R94 .6 ABNORMAL RESULTS OF THYROID FUNCTION JO 05/14/2019 PATRICK MOSQUERA, FATOUMATA White Ot L72.3 SEBACEOUS CYST 05/14/2019 PATRICK MOSQUERA, FATOUMATA White Ot Z01.818 ENCOUNTER FOR OTHER PREPROCEDURAL EXAMIN 05/14/2019 GAGANDEEP BLAND CARD DEALER Ot Z12.3 1 ENCNTR SCREEN MAMMOGRAM FOR MALIGNANT NE 05/14/2019 ISRAEL JOSUE ATOMIC FUEL ASSEMBLER Ot M54.9 DORSALGIA, UNSPECIFIED 05/14/2019 ISRAEL JOSUE ATOMIC FUEL ASSEMBLER Ot R07.81 PLEURODYNIA 05/14/2019 BALDO GAGANDEEP W CARD DEALER Ot Z12.3 1 ENCNTR SCREEN MAMMOGRAM FOR MALIGNANT NE 05/14/2019 BALDO GAGANDEEPAry NATHAN Ot Z12.3 1 ENCNTR SCREEN MAMMOGRAM FOR MALIGNANT NE 05/14/2019 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 Ot L08 .9 LOCAL INFECTION OF THE SKIN AND SUBCUTAN 05/14/2019 TOMAS MOA BAND BIAS MACHINE OPERATOR-C Ot L72 .3 SEBACEOUS CYST 05/14/2019 ISRAEL JOSUE ATOMIC FUEL ASSEMBLER Ot 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 05/14/2019 ISRAEL JOSUE ATOMIC FUEL ASSEMBLER Ot N63.20 UNSPECIFIED LUMP IN THE LEFT BREAST, UNS 05/14/2019 BALDOMUSTAPHAAry Santos CARD DEALER Ot Z12.3 1 ENCNTR SCREEN MAMMOGRAM FOR MALIGNANT NE Procedures There is no data. Results Test Result Range Gram stain microscopy - 01/25/18 17:42 Gram stain microscopy No bacteria seen NRG Bacteria identification in wound by cult ure - 01/25/18 17:42 Bacteria identification in wound by culture [id number] NRG FREE TEXT EXTERNAL NO SUSCEPTIBILITY PERFORMED NRG QUANTITY OF GROWTH Rare NRG FREE TEXT ENTRY 2 ID REPORTED 01/28/18 14:05 NRG Complete blood count (CBC) with automate d white blood cell (WBC) differential - 02/24/19 09:20 Blood leukocytes automated count (number/volume) 6.8 10*3/uL 4.3-11.0 Blood erythrocytes automated count (number/volume) 4.57 10*6/uL 4.35-5.85 Venous blood hemoglobin measurement (mass/volume) 13.9 g/dL 11.5-16.0 Blood hematocrit (volume fraction) 40 % 35-52 Automated erythrocyte mean corpuscular volume 88 [ foz_us] 80-99 Automated erythrocyte mean corpuscular h emoglobin (mass per erythrocyte) 30 pg 25-34 Automated erythrocyte mean corpuscular h emoglobin concentration measurement (mass/volume) 35 g/dL 32-36 Automated erythrocyte distribution width ratio 13. 0 % 10.0- 14.5 Automated blood platelet count (count/volume) 239 10*3/uL 130-400 Automated blood platelet mean volume measurement 9.3 [foz_us] 7.4-10.4 Automated blood neutrophils/100 leukocytes 60 % 42-75 Automated blood lymphocytes/100 leukocytes 30 % 12-44 Blood monocytes/100 leukocytes 8 % 0-12 Automated blood eosinophils/100 leukocytes 2 % 0-10 Automated blood basophils/100 leukocytes 0 % 0-10 Blood neutrophils automated count (number/volume) 4.0 10*3 1.8-7.8 Blood lymphocytes automated count (number/volume) 2.1 10*3 1.0-4.0 Blood monocytes automated count (number/volume) 0. 6 10*3 0.0-1.0 Automated eosinophil count 0.1 10*3/uL 0 .0-0.3 Automated blood basophil count (count/volume) 0.0 10*3/uL 0.0-0.1 Blood type T Indirect antibody screen pa sergei - 02/24/19 09:20 ABO+Rh group AP NRG Blood group antibody screen NEGATIVE NR G Methicillin resistant Staphylococcus aur eus (MRSA) screening culture - 02/24/19 09:20 Methicillin resistant Staphylococcus aureus (MRSA) scr eening culture NEG NRG Complete blood count (CBC) with automate d white blood cell (WBC) differential - 05/14/19 14:37 Blood leukocytes automated count (number/volume) 9.1 10*3/uL 4.3-11.0 Blood erythrocytes automated count (number/volume) 4.55 10*6/uL 4.35-5.85 Venous blood hemoglobin measurement (mass/volume) 13.6 g/dL 11.5-16.0 Blood hematocrit (volume fraction) 41 % 35-52 Automated erythrocyte mean corpuscular volume 89 [ foz_us] 80-99 Automated erythrocyte mean corpuscular h emoglobin (mass per erythrocyte) 30 pg 25-34 Automated erythrocyte mean corpuscular h emoglobin concentration measurement (mass/volume) 34 g/dL 32-36 Automated erythrocyte distribution width ratio 13. 2 % 10.0- 14.5 Automated blood platelet count (count/volume) 284 10*3/uL 130-400 Automated blood platelet mean volume measurement 9.1 [foz_us] 7.4-10.4 Automated blood neutrophils/100 leukocytes 62 % 42-75 Automated blood lymphocytes/100 leukocytes 24 % 12-44 Blood monocytes/100 leukocytes 12 % 0-12 Automated blood eosinophils/100 leukocytes 2 % 0-10 Automated blood basophils/100 leukocytes 0 % 0-10 Blood neutrophils automated count (number/volume) 5.6 10*3 1.8-7.8 Blood lymphocytes automated count (number/volume) 2.2 10*3 1.0-4.0 Blood monocytes automated count (number/volume) 1. 1 10*3 0.0-1.0 Automated eosinophil count 0.2 10*3/uL 0 .0-0.3 Automated blood basophil count (count/volume) 0.0 10*3/uL 0.0-0.1 Comprehensive metabolic panel - 05/14/19 14:37 Serum or plasma sodium measurement (moles/volume) 140 mmol/L 135-145 Serum or plasma potassium measurement (moles/volume) 4.1 mmol/L 3.6-5.0 Serum or plasma chloride measurement (moles/volume) 105 mmol/L 98-107 Carbon dioxide 25 mmol/L 21-32 Serum or plasma anion gap determination (moles/volume) 10 mmol/L 5-14 Serum or plasma urea nitrogen measurement (mass/volume ) 20 mg/dL 7-18 Serum or plasma creatinine measurement (mass/volume) 0.95 mg/dL 0.60-1.30 Serum or plasma urea nitrogen/creatinine mass ratio 21 NRG Serum or plasma creatinine measurement w ith calculation of estimated glomerular filtration rate 60 NRG Serum or plasma glucose measurement (mass/volume) 113 mg/dL 70-105 Serum or plasma calcium measurement (mass/volume) 9.6 mg/dL 8.5-10.1 Serum or plasma total bilirubin measurement (mass/volu me) 0.4 mg/dL 0.1-1.0 Serum or plasma alkaline phosphatase sanjana surement (enzymatic activity/volume) 94 U/L 40-136 Serum or plasma aspartate aminotransfera se measurement (enzymatic activity/volume) 18 U/L 5-34 Serum or plasma alanine aminotransferase measurement (enzymatic activity/volume) 16 U/L 0-55 Serum or plasma protein measurement (mass/volume) 7.4 g/dL 6.4-8.2 Serum or plasma albumin measurement (mass/volume) 4.5 g/dL 3.2-4.5 CALCIUM CORRECTED 9.2 mg/dL 8.5-10.1 Magnesium - 05/14/19 14:37 Magnesium 2.1 mg/dL 1.6-2.4 Serum or plasma troponin i.cardiac measu rement (mass/volume) - 05/14/19 14:37 Serum or plasma troponin i.cardiac measurement (mass/v olume) < ng/mL <0.028 PT panel in platelet poor plasma by coag ulation assay - 05/14/19 14:37 Prothrombin time (PT) in platelet poor plasma by coagu lation assay 12.8 s 12.2-14.7 INR in platelet poor plasma or blood by coagulation as say 0.9 0.8-1.4 Activated partial thromboplastin time (a PTT) in platelet poor plasma bycoagulation assay - 05/14/19 14:37 Activated partial thromboplastin time (a PTT) in platelet poor plasma bycoagulation assay 25 s 24-35 Fibrin D-dimer FEU measurement in platel et poor plasma (mass/volume) - 05/14/19 14:37 Fibrin D-dimer FEU measurement in platelet poor plasma (mass/volume) 0.47 ug/mL 0.00-0.49 Myoglobin, serum - 05/14/19 14:37 Myoglobin, serum 43.2 ng/mL 10.0-92.0 Lipase - 05/14/19 14:37 Lipase 52 U/L 8-78 Serum or plasma troponin i.cardiac measu rement (mass/volume) - 05/14/19 16:30 Serum or plasma troponin i.cardiac measurement (mass/v olume) < ng/mL <0.028 Encounters ACCT No. Visit Date/Time Discharge Status Pt. Type Provider Facility Loc./Unit Complaint [id number] 05/14/2019 14:26:00 020 17:29:00 DIS Emergency EDUARDO CAPPS MD [facility] ER CHEST PAIN [id number] 03/02/2019 08:52:00 019 15:10:00 DIS Outpatient RIVKA CARBAJAL DO [facility] CYSTOCELE RECTOCELE [id number] 02/24/2019 08:47:00 019 12:00:00 DIS Outpatient RIVKA CARBAJAL DO [facility] PREOP CYSTOCELE RECTOCELE [id number] 09/30/2018 07:28:00 019 23:59:59 CLS Outpatient GAGANDEEP BLAND [facility] RAD SCREENING [id number] 03/06/2018 13:50:00 019 23:59:59 CLS Outpatient ISRAEL JOSUE APRN [facility] RAD LEFT BREAST LUMP [id number] 01/25/2018 17:41:00 23:59:59 CLS Outpatient 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 [facility] LABNPT [id number] 08/01/2017 07:14:00 23:59:59 CLS Outpatient GAGANDEEP BLAND [facility] RAD SCREENING [id number] 03/30/2017 08:00:00 23:59:59 CLS Preadmit NERI MOSQUERA, FIONA Fay ia [facility] RAD LUMBAGO [id number] 07/04/2016 05:16:00 017 08:48:00 DIS Emergency CED MOSQUERA, RICKIE Lloyd [facility] ER BACK PAIN [id number] 06/11/2016 11:02:00 23:59:59 CLS Outpatient GAGANDEEP BLAND [facility] RAD SCREENING [id number] 09/02/2015 08:28:00 016 11:30:00 DIS Outpatient LEONARDO IZQUIERDO MD [facility] SDC SCREENING [id number] 08/31/2015 05:47:00 016 09:24:00 DIS Outpatient LEONARDO IZQUIERDO MD [facility] PREOP SCREENING [id number] 04/21/2015 16:14:00 23:59:59 CLS Outpatient ISRAEL JOSUE APRN [facility] RAD R RIB AND BACK PAIN [id number] 03/16/2015 15:12:00 23:59:59 CLS Outpatient GAGANDEEP BLAND [facility] RAD ROUTINE MAMMOGRAM GUILHERME HERNANDEZG [id number] 02/04/2015 09:31:00 15:35:00 DIS Outpatient FATOUMATA NGUYEN MD [facility] SDC PABLO.CYST [id number] 02/03/2015 14:07:00 23:59:59 CLS Outpatient FATOUMATA NGUYEN MD [facility] PREOP PABLO.CYST [id number] 12/16/2014 14:12:00 23:59:59 CLS Outpatient IZZY MICHELLE MD [facility] RAD THYOID NODULE RT AND LT [id number] 03/03/2014 10:13:00 23:59:59 CLS Outpatient GAGANDEEP BLAND [facility] RAD SCREENING [id number] 02/27/2014 12:25:00 13:54:00 DIS Emergency 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 [facility] ER UNABLE TO URINATE [id number] 02/02/2014 13:05:00 23:59:59 CLS Outpatient MARLON SANTIAGO MD [facility] RAD LEFT KIDNEY LEISON [id number] 01/21/2014 13:52:00 23:59:59 CLS Outpatient MARLON SANTIAGO MD [facility] RAD LT RENAL LESION [id number] 12/24/2013 16:06:00 23:59:59 CLS Outpatient TEMO DICKSONP [facility] RAD L HIP PAIN [id number] 02/23/2013 09:33:00 23:59:59 CLS Outpatient JAYLA MAYS DO [facility] RAD SCREENING [id number] 12/25/2012 15:52:00 23:59:59 CLS Outpatient 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 [facility] RT CHEST PAIN [id number] 05/21/2019 13:45:00 P EN Preadmit MARLON SANTIAGO MD [facility] RAD LEFT BREAST PAIN [id number] 10/22/2016 13:49:00 Document Registration [id number] 10/22/2016 13:49:00 Document Registration [id number] 10/22/2016 13:48:00 Document Registration [id number] 03/03/2014 10:13:00 Document Registration [id number] 01/31/2012 14:57:00 Document Registration [id number] 11/29/2011 11:29:00 Document Registration [id number] 11/27/2011 12:52:00 Document Registration [id number] 05/22/2011 09:50:00 Document Registration [id number] 04/12/2011 16:17:00 Document Registration [id number] 04/05/2011 11:50:00 Document Registration [id number] 12/07/2010 14:13:00 Document Registration [id number] 09/08/2010 12:13:00 Document Registration [id number] 09/05/2010 08:23:00 Document Registration [id number] 12/06/2009 09:04:00 Document Registration [id number] 11/29/2008 07:24:00 Document Registration [id number] 06/08/2008 14:36:00 Document Registration [id number] 05/26/2008 10:04:00 Document Registration [id number] 04/30/2008 09:07:00 Document Registration [id number] 04/21/2008 08:55:00 Document Registration [id number] 11/14/2007 08:03:00 Document Registration [id number] 01/15/2007 10:26:00 Document Registration [id number] 01/10/2007 12:46:00 Document Registration [id number] 12/21/2005 15:30:00 Document Registration [id number] 08/21/2005 07:20:00 Document Registration
== END 2019-05-14 17:29 | disposition home or self-care (01) ==
LOC: EDUNIT# 14:25 → ER 14:26
DX: R07.89 Other chest pain (principal); I10 Essential (primary) hypertension; Z88.5 Allergy status to narcotic agent; Z88.0 Allergy status to penicillin; Z88.1 Allergy status to other antibiotic agents; Z88.8 Allergy status to other drugs, medicaments and biological substances; Z79.52 Long term (current) use of systemic steroids
CPT/HCPCS: 36415; 71045; 80053; 83690; 83735; 83874; 84484; 85025; 85379; 85610; 85730; 93005; 93041

== ENCOUNTER → 2019-05-21 | Outpatient (CLI) | payer BC, OTHER ==
--- NOTE | 2019-05-21 15:21 | Diagnostic Imaging Report ---
INDICATION: Pain in the medial left breast. CORRELATION made with diagnostic mammogram earlier the same day. Sonographic interrogation of the medial left breast was performed. No sonographic abnormality is identified. No solid or cystic mass is detected. IMPRESSION: BI-RADS Category 1. No significant abnormality is detected. ACR BI-RADS Category 0: Incomplete. (Needs additional imaging evaluation). Result letter will be mailed to the patient. Note: At least 10% of breast cancer is not imaged by mammography. Dictated by: Dictated on workstation # [id number]
--- NOTE | 2019-05-21 16:35 | Diagnostic Imaging Report ---
INDICATION: Pain in the medial left breast. CORRELATION is made with prior mammograms from 09/30/2018 and 03/06/2018. Unilateral left 2-D and 3-D diagnostic mammography was performed with CAD. There are scattered fibro-glandular densities in the left breast. No mass or malignant appearing microcalcifications are seen. Left axilla is unremarkable. IMPRESSION: BI-RADS 0 No mammographic abnormality is identified. Even so, directed sonographic interrogation of the area of pain in the medial left breast is recommended and will be performed today. ACR BI-RADS Category 0: Incomplete. (Needs additional imaging evaluation). Result letter will be mailed to the patient. Note: At least 10% of breast cancer is not imaged by mammography. Dictated by: Dictated on workstation # [id number]
== END ==
LOC: RAD 13:31
PROVIDERS: ATTEND Family Medicine
DX: N64.4 Mastodynia (principal)
CPT/HCPCS: 76642

== ENCOUNTER → 2020-05-20 | Outpatient (CLI) | payer BC ==
--- NOTE | 2020-05-23 08:38 | Diagnostic Imaging Report ---
INDICATION: Routine screening. COMPARISON: 09/30/2018 and 08/01/2017. TECHNIQUE: 2D and 3D bilateral screening mammography was performed with CAD. FINDINGS: Both breasts are heterogeneously dense, limiting the sensitivity of mammography. The parenchymal pattern is stable. No mass or malignant appearing microcalcifications are seen. The axillae are unremarkable. IMPRESSION: No mammographic features suspicious for malignancy are identified. ACR BI-RADS Category 1: Negative. Result letter will be mailed to the patient. Note: At least 10% of breast cancer is not imaged by mammography. Dictated by: Dictated on workstation # [id number]
== END ==
LOC: RAD 14:17
PROVIDERS: ATTEND Surgery
DX: Z12.31 Encounter for screening mammogram for malignant neoplasm of breast (principal)
CPT/HCPCS: 77063; 77067

== ENCOUNTER → 2020-09-23 | Outpatient (CLI) | payer BC ==
[~2020-09-23] MED LIST changes: -SULF1TAB35 PO; +SULF1TAB38 PO
== END ==
LOC: LABNPT 05:11
PROVIDERS: ATTEND Orthopaedic Surgery
DX: Z01.812 Encounter for preprocedural laboratory examination (principal); Z53.9 Procedure and treatment not carried out, unspecified reason

== ENCOUNTER → 2020-10-05 | Outpatient (CLI) | payer BC | LOC: LABNPT 06:18 | PROVIDERS: ATTEND Orthopaedic Surgery | DX: Z01.812 Encounter for preprocedural laboratory examination (principal); Z20.822 Contact with and (suspected) exposure to COVID-19 | CPT/HCPCS: 87635 ==

== ENCOUNTER 2020-10-21 15:09 | Outpatient (RCR) | payer BC | END 2020-10-26 13:05 | disposition home or self-care (01) | PROVIDERS: ATTEND Physician Assistant Medical | DX: S83.221A Peripheral tear of medial meniscus, current injury, right knee, initial encounter (principal); X58.XXXA Exposure to other specified factors, initial encounter ==

== ENCOUNTER → 2021-06-19 | Outpatient (CLI) | payer BC ==
[~2021-06-19] MED LIST changes: +CYCL10TA25 PO; -CYCL10TA9 PO; -POTA99TA21 PO; +POTA99TA26 PO
--- NOTE | 2021-06-19 11:18 | Diagnostic Imaging Report ---
INDICATION: Routine screening. COMPARISON: 05/20/2020 and 09/30/2018. TECHNIQUE: 2D and 3D bilateral screening mammography was performed with CAD. FINDINGS: Scattered fibroglandular densities are identified bilaterally. The parenchymal pattern is stable. No mass or malignant-appearing microcalcifications are seen. The axillae are unremarkable. IMPRESSION: No mammographic features suspicious for malignancy are identified. ACR BI-RADS Category 1: Negative. Result letter will be mailed to the patient. Note: At least 10% of breast cancer is not imaged by mammography. Dictated by: Dictated on workstation # [id number]
== END ==
LOC: RAD 08:15
PROVIDERS: ATTEND Surgery
DX: Z12.31 Encounter for screening mammogram for malignant neoplasm of breast (principal)
CPT/HCPCS: 77063; 77067

== ENCOUNTER 2021-08-28 17:59 | Emergency (ER) | payer BC ==
[~2021-08-28] VITALS: Ht 172.7 cm; Wt 98.8 kg
--- NOTE | 2021-08-28 19:13 | ED Cough/URI ---
General Chief Complaint: COVID19 Suspect/Confirmed Stated Complaint: COUGH/CONGESTION Nursing Triage Note: was diagnosed with sinus infection 7 days ago for a probable sinus infection diagnosed over the phone., patient was started on azithromycin and prednisone and was feeling better. last night started coughing again and was coughing so hard it was making her gag and throw up in addition to this coughing and excess mucus she c/o headache and neck ache. corecedin at home. History of Present Illness Date Seen by Provider: Aug 28, 2021 Time Seen by Provider: 18:58 Initial Comments Patient is a 61-year-old female who presents to the emergency department today with a chief complaint of upper respiratory congestion, nausea related to cough with vomiting. No shortness of breath. She recently traveled to [place] and had a negative COVID test. She was put on a round of azithromycin last Saturday for 5 days as well as 5 days of steroids. She states while she was on it she felt really good however last night the cough started she was unable to sleep. She gags on her sputum. She feels a lot of bilateral ear fullness. No fevers or chills. She has muscle aches in her chest and neck related to coughing. She has been taking Coricidin HBP as her pbkq-dvp-wjijucw medication of choice for her symptoms. Nothing seems to help. She is allergic to penicillin, codeine, lidocaine and Macrobid. She states codeine just makes her nauseous and vomit. COVID vaccinated without boosters. All other review of systems reviewed and negative except as stated Timing/Duration: yesterday Severity/Quality: moderate, productive cough Prior Episodes/Possible Cause: occasional episodes Modifying Factors: Worse With Coughing Associated Symptoms: chest pain/soreness, cough, muscle aches, nasal congestion, nasal drainage, sinus infection, sore throat Allergies and Home Medications Allergies Coded Allergies: lidocaine (Verified Allergy, Severe, ANAPHYLAXIS, 08/28/21) nitrofurantoin (Unverified Allergy, Severe, TACHYCARDIA, 08/28/21) codeine (Unverified Allergy, Mild, N/V, 08/28/21) amoxicillin (Verified Allergy, Unknown, 08/28/21) clavulanic acid (Verified Allergy, Unknown, 08/28/21) Patient Home Medication List Home Medication List Reviewed: Yes Carvedilol (Carvedilol) 3.125 Mg Tablet, 3.125 MG PO BID, (Reported) Entered as Reported by: CATHY MAURICIO on 02/24/19 09 Cholecalciferol (Vitamin D3) (Vitamin D) 1,000 Unit Capsule, 1,000 UNIT PO DAILY, (Reported) Entered as Reported by: CATHY MAURICIO on 02/24/19 09 Docusate Sodium (Docusate Sodium) 100 Mg Capsule, 100 MG PO BID PRN for CONSTIPATION-1ST LINE Prescribed by: RIVKA CARBAJAL on 03/02/19 1020 Estradiol (Estrace Tablet) 0.5 Mg Tablet, 0.5 MG PO DAILY, (Reported) Entered as Reported by: CATHY MAURICIO on 02/24/19 09 Flaxseed Oil (Flax Seed Oil) 1,000 Mg Capsule, 1,000 MG PO DAILY, (Reported) Entered as Reported by: CATHY MAURICIO on 02/24/19 09 Hydrocodone Bit/Acetaminophen (Lortab 5 Mg Tablet) 1 Tab Tab, 1-2 TAB PO Q6HR PRN for PAIN-MODERATE (5-7) Prescribed by: RIVKA CARBAJAL on 03/02/19 1020 Ibuprofen (Ibu) 600 Mg Tablet, 600 MG PO Q6HR Prescribed by: RIVKA CARBAJAL on 03/02/19 1020 Multivitamin (Multivitamins) 1 Each Capsule, 1 EACH PO DAILY, (Reported) Entered as Reported by: CATHY MAURICIO on 02/24/19 09 Review of Systems Review of Systems Constitutional: see HPI EENTM: nose congestion, nose pain, throat pain Respiratory: cough, phlegm Cardiovascular: no symptoms reported Gastrointestinal: nausea, vomiting Genitourinary: no symptoms reported : No Musculoskeletal: neck pain, other (chest (muscular)) Skin: no symptoms reported All Other Systems Reviewed Negative Unless Noted: Yes Past Kuoomfp-Skrolz-Gabilt Hx Patient Social History Tobacco Use?: No Use of E-Cig and/or Vaping dev: No Substance use?: No Alcohol Use?: No Pt feels they are or have been: No Immunizations Up To Date Influenza Vaccine Up-to-Date: No; Not Current First/Initial COVID19 Vaccinat: 2020 Second COVID19 Vaccination Norman: 2020 COVID19 Vaccine House Wirer: Fronto Seasonal Allergies Seasonal Allergies: Yes Past Medical History Surgery/Hospitalization HX: back surg, partial hyster, ovarian cyst, right knee scope, bladder tie up, tonsils Surgeries: Yes (OVARIAN CYST, L knee SCOPE, SEBACEOUS CYST, DISCECTOMY) Adenoidectomy, Hysterectomy, Tonsillectomy Respiratory: No Currently Using CPAP: No Currently Using BIPAP: No Cardiac: Yes (SL MURMUR) Hypertension, Palpitations Neurological: No 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 Sexually Transmitted Disease: No HIV/AIDS: No Genitourinary: No Gastrointestinal: No Musculoskeletal: Yes (HERNIATED DISC) Chronic Back Pain Endocrine: No (THYROID NODULES) HEENT: Yes (GLASSES) Loss of Vision: Denies Hearing Impairment: Denies Cancer: No Psychosocial: No Integumentary: No Blood Disorders: No Adverse Reaction/Blood Tranf: No (N/A) Family Medical History No Pertinent Family Hx, Diabetes, Hypertension, Stroke Physical Exam Vital Signs - First Documented 08/28/21 18:40 Temp 37.5 Pulse 80 Resp 18 B/P (MAP) 157/82 (107) Pulse Ox 96 O2 Delivery Room Air Capillary Refill : Less Than 3 Seconds Height: 5'8.00" Weight: 225lbs. 0.0oz. 102.942603qx; 33.00 BMI Method:Stated General Appearance: WD/WN, no apparent distress Eyes: Bilateral Eye Normal Inspection, Bilateral Eye PERRL, Bilateral Eye EOMI HEENT: PERRL/EOMI, TM abnormal (R) (Significant effusions behind bilateral TMs, no erythema.), TM abnormal (L), other (She has nasal mucosal injection with some fresh blood noted on the septum in the right nare) Neck: normal inspection, lymphadenopathy (R), lymphadenopathy (L) (Anterior cervical lymphadenopathy bilateral) Respiratory: lungs clear, normal breath sounds, no respiratory distress, no accessory muscle use Cardiovascular: regular rate, rhythm Gastrointestinal: non tender, soft Extremities: normal range of motion Neurologic/Psychiatric: alert, normal mood/affect, oriented x 3 Skin: normal color, warm/dry Progress/Results/Core Measures Suspected Sepsis SIRS Temperature: Pulse: 80 Respiratory Rate: 18 Blood Pressure 157 /82 Mean: 107 Results/Orders Lab Results Laboratory Tests Test 08/28/21 18:46 Range/Units SARS-CoV-2 RNA (RT-PCR) Detected H Not Detecte My Orders Orders - CINTIA SILVA MD Covid 19 Inhouse Test (08/28/21 19:08) Isolation Central Supply Req (08/28/21 19:08) Rx-Nirmatrelvir/Ritonavir(Eua) (Rx-Paxlo (08/28/21 21:00) Rx-Nirmatrelvir/Ritonavir(Eua) (Rx-Paxlo (08/28/21 20:13) Guaifenesin Tablet (Mucinex Tablet) (08/28/21 20:30) Bebtelovimab (Bebtelovimab) (08/28/21 21:30) Medications Given in ED Current Medications Medications Dose Ordered Sig/Paula Route Start Time Stop Time Status Last Admin Dose Admin Guaifenesin 600 mg ONCE ONCE PO 08/28/21 20:30 08/28/21 20:31 DC 08/28/21 20:44 600 MG Vital Signs/I&O 08/28/21 18:40 Temp 37.5 Pulse 80 Resp 18 B/P (MAP) 157/82 (107) Pulse Ox 96 O2 Delivery Room Air Capillary Refill : Less Than 3 Seconds Blood Pressure Mean: 107 Progress Note #1: Time: 20:15 Progress Note Discussed COVID positive findings with the patient. Recommended Paxil admitted for outpatient treatment. Her vital signs are stable, she exhibits no increased work of breathing. Her only comorbidities are hypertension, hyperch olesterolemia. We have dispensed the Paxil admitted from the ED. Patient is given return precautions. She has a follow-up appointment with her primary care doctor, Dr. Martinez a week from tomorrow. All questions are sought and answered. Patient is stable for discharge Progress Note #2: Time: 21:30 Progress Note Notified on discharge the patient was very reluctant/hesitant to take the Paxlovid. She was worried that it might "shut my kidneys down". The CDC guidelines "information for patients" on both medications were provided to the patient. At this point she has decided she would prefer to do the monoclonal antibody infusion. I did tell her that there were risks to both that would be impossible to predict however they have both been used quite safely in recent months. She would be at increased risk due to age as well as history of hypertension and hypercholesterolemia and "prediabetes" comorbidities. She will get the infusion tonight. She has agreed Departure Impression Primary Impression: COVID-19 Disposition: 01 HOME, SELF-CARE Condition: Stable Departure-Patient Inst. Decision time for Depature: 20:16 Referrals: MARLON MARTINEZ MD (PCP/Family) Primary Care Physician Patient Instructions: COVID-19 (DC) Add. Discharge Instructions: Drink plenty of fluids to stay well-hydrated. Ymbo-dmm-rzhmnwx Mucinex as directed along with the Coricidin HBP. If you become more short of breath, have high fever, any other worsening symptoms please come back to the emergency department for reevaluation. Please let your work know about your COVID-positive status. You will need to quarantine for 5 days at home with a mask and then a subsequent 5 days out in public with a mask. As long as Dr. Martinez says it is okay keep your follow-up appointment next Saturday. Return to the emergency room for any other new, concerning or emergent complaints. Copy Copies To 1: MARLON MARTINEZ MD, KATHRYN M MD Aug 28, 2021 19:13
[2021-08-28] MEDS ORDERED: RX-NIRMATRELVIR/RITONAVIR (PAXLOVID) #30 TABS PO ONE (20:13)
[2021-08-28] MEDS ORDERED: guaiFENesin (MUCINEX) 600 MG TAB PO ONE (20:30)
[2021-08-28] MEDS ORDERED: RX-NIRMATRELVIR/RITONAVIR (PAXLOVID) #30 TABS PO SCH (21:00)
[2021-08-28] MEDS ORDERED: BEBTELOVIMAB 175 MG/2 ML VIAL IV ONE (21:30)
[2021-08-28 23:15] VITALS: BP 133/67
== END 2021-08-28 23:14 | disposition home or self-care (01) ==
LOC: EDUNIT# 17:59 → ER 18:01
DX: U07.1 COVID-19 (principal); I10 Essential (primary) hypertension; Z79.899 Other long term (current) drug therapy; Z88.0 Allergy status to penicillin; Z88.1 Allergy status to other antibiotic agents; Z88.5 Allergy status to narcotic agent; Z88.7 Allergy status to serum and vaccine
CPT/HCPCS: 87636

== ENCOUNTER → 2022-04-03 | Outpatient (RCR) | payer BC | END | disposition home or self-care (01) | PROVIDERS: ATTEND Nurse Practitioner Family | DX: M54.50 Low back pain, unspecified (principal); M25.561 Pain in right knee; I10 Essential (primary) hypertension ==

== ENCOUNTER 2022-04-30 16:16 | Outpatient (RCR) | payer BC | END 2022-05-01 | disposition home or self-care (01) | PROVIDERS: ATTEND Nurse Practitioner Family | DX: M54.50 Low back pain, unspecified (principal); M25.561 Pain in right knee ==

== ENCOUNTER 2022-05-24 15:38 | Outpatient (RCR) | payer BC | END 2022-05-24 17:00 | disposition home or self-care (01) | PROVIDERS: ATTEND Nurse Practitioner Family | DX: M54.50 Low back pain, unspecified (principal); M25.561 Pain in right knee; R26.89 Other abnormalities of gait and mobility ==

== ENCOUNTER → 2022-08-16 | Outpatient (CLI) | payer BC ==
--- NOTE | 2022-08-17 10:48 | Diagnostic Imaging Report ---
Indication: Routine screening. Comparison is made with prior mammograms 06/19/2021 and 05/20/2020. 2-D and 3-D bilateral screening mammography was performed with CAD. Both breasts are heterogeneously dense, limiting the sensitivity of mammography. The parenchymal pattern is stable. No mass or malignant-appearing microcalcifications are seen. Axillae are unremarkable. IMPRESSION: BI-RADS Category 1 No mammographic features suspicious for malignancy are identified. ACR BI-RADS Category 1: Negative. Result letter will be mailed to the patient. Note: At least 10% of breast cancer is not imaged by mammography. Dictated by: Dictated on workstation # [id number]
== END ==
LOC: RAD 14:03
PROVIDERS: ATTEND Surgery
DX: Z12.31 Encounter for screening mammogram for malignant neoplasm of breast (principal)
CPT/HCPCS: 77063; 77067

== ENCOUNTER 2022-11-14 05:40 | Outpatient (CLI) | payer BC ==
[~2022-11-14] VITALS: Ht 175.3 cm; Wt 110.0 kg
[2022-11-16] MEDS ORDERED: ESCI5TAB16 PO (13:13)
[2022-11-16] MEDS ORDERED: DILT180T9 PO (13:13)
[2022-11-16] MEDS ORDERED: ROSU5TAB13 PO (13:13)
== END 2022-11-16 13:25 | disposition home or self-care (01) ==
LOC: PREOP 05:40
PROVIDERS: ATTEND Internal Medicine
DX: Z01.818 Encounter for other preprocedural examination (principal)